=== PATIENT | male | born 1945 | race Caucasian/White ===

== ENCOUNTER 2024-02-20 10:00 | Inpatient (IN) | payer MEDICARE, OTHER, SELFPAY ==
[2024-02-19] VITALS (22 sets, daily range): BP systolic 95–128; BP diastolic 52–96; BMI 29.2; BMI 28.2
--- NOTE | 2024-02-19 14:14 | ED.GENMED ---
History of Present Illness
General
Chief Complaint: Dizziness
Time Seen by Provider: 02/19/24 13:59
Travel History
Have you had any contact with someone who has COVID-19?: No
Do you have any symptoms of coronavirus? Fever > 100 degrees, chills, cough, shortness of breath, sore throat, loss of taste or smell, muscle aches, or headache?: No
History of Present Illness
History of Present Illness:
78-year-old male with history of hypertension and hyperlipidemia presents to the emergency department for evaluation of chills and dizziness ongoing for the past 7 days. He notes that within the past few weeks his blood pressure medications were
increased due to uncontrolled hypertension, over the past week his blood pressures have been low. Yesterday his noted that his heart rate was quite elevated. He denies any chest pain or palpitations at this time. He does report increased
lightheadedness with ambulation and feels overall weak. No fevers or night sweats
Review of Systems
Review of Systems
Allergies reviewed?: Yes
All Other Systems: ROS reviewed and negative except as documented in HPI and ROS
Phy Exam
Physical Exam
Physical Exam:
GEN: Well appearing, NAD, WDWN
Eyes: PERRLA, EOMs intact, no scleral icterus
HENT: NCAT, oral mucosa moist, no JVD, no cervical adenopathy.
Lungs: CTAB, no wheezes, rales, rhonchi, normal chest wall excursion
Cardiac: Tachycardic and irregular, subtle systolic murmur
Abdomen: S, NT, ND, NABS, no masses or hepatosplenomegaly
Neuro: AO x 3
MSK: No gross deformity or ecchymosis. No edema. No digital clubbing
Skin: No rashes, petechiae. Normal color, no pallor or jaundice.
Psych: Calm, cooperative, proper hygiene
Course
Orders/Labs/Results
Orders:
Orders
02/19/24 12:27
ECG [Electrocardiogram (*1)] Urgent
Reason for Study: Vertigo / Dizzy
EKG- Treatment ONCE
02/19/24 14:13
CR Chest - 2 Views Urgent
Comment:
Reason For Exam: SOB
02/19/24 14:16
Complete Blood Count/With Diff Urgent
Comprehensive Metabolic Panel Urgent
NT-proBNP Urgent
Troponin I Urgent
02/19/24 15:48
Heparin 4,000 units IV NOW STA
Nursing to Place Non Medication Order As Directed
Physician Order: PTT 6 hours after initial start of Heparin infusion
Above order entered?: Yes
02/19/24 15:54
PTT Urgent
Comment: Obtain baseline before beginning heparin infusion if not already collected
02/19/24 16:00
Diltiazem 125 mg/125 ml Nss [Cardizem] 125 mg in 125 ml IV PER PROTOCOL
Initial dose in mg/hr, then titrate:: 5
Titrate to keep:: Heart rate 80-100 bpm
Titrate by mg/hr:: 5 mg/hr
Frequency of titrations (minutes):: 15
Maximum dose in mg/hr:: 15
Heparin 84573 Units/250 ml 25,000 units in 250 ml IV PER PROTOCOL
Weight to be used for heparin protocol in kilograms (kg):: 97.6
Protocol:: Cardiac Tx/Acute Coronary
PTT Goal Range to be used:: PTT 73 to 111 seconds
Order type:: Initial
INITIAL Infusion Dose (UNITS/KG/hr) & then follow protocol:: 12 units/kg/hr
Infusion Dose in UNITS/hr & then follow protocol (UNITS/hr):: 1,000
INFUSION RATE in mL/hr & then follow protocol (mL/hr):: 10
PTT less than or equal to 64 seconds:: Increase rate by 200 units/hr (+ 2 mL/hr)
PTT 64.1 to 72.9 seconds:: Increase rate by 100 units/hr (+ 1 mL/hr)
PTT 73 to 111 seconds:: Target Range. No change in rate.
PTT 111.1 to 130.9 seconds:: Decrease rate by 100 units/hr (- 1 mL/hr)
PTT 131 to 199.9 seconds:: HOLD for 1 hr. Then decrease rate by 200 units/hr (- 2 mL/hr)
PTT greater than or equal to 200 seconds:: HOLD for 2 hrs & Notify Provider. Then decrease by 200 units/hr (-
2 mL/hr)
Lab follow-up:: Each change, PTT q6h until 2 consecutive are therapeutic. Then PTT
daily.
02/19/24 17:10
Admit/Transfer Patient As Directed
Co-Sign Provider:
Level of Care: Observation services
Assign to:: IVU
Physician / Group: bimal
Diagnosis: new onset afib
Code Status As Directed
Resuscitation Status: Full Code
02/19/24 23:00
PTT Urgent
Abnormal Lab Results
02/19/24
14:16
RBC 4.16 L 10^6/uL
(4.70-6.10)
Hgb 12.2 L g/dL
(13.0-18.0)
Hct 37.0 L %
(39.0-52.0)
RDW 15.7 H %
(11.5-14.5)
Glucose 104 H mg/dl
(70-99)
02/19/24 14:16
02/19/24 14:16
Vital Signs
Initial and Last Documented VS:
Initial Vital Signs
Temp Pulse Resp BP Pulse Ox
97.9 F 102 20 127/66 96
02/19/24 12:20 02/19/24 12:20 02/19/24 12:20 02/19/24 12:20 02/19/24 12:20
Last Documented Vital Signs
Temp Pulse Resp BP Pulse Ox
97.9 F 89 15 106/65 94
02/19/24 12:20 02/19/24 18:15 02/19/24 18:15 02/19/24 18:15 02/19/24 18:15
MDM/Problems Addressed
MDM/Problems Addressed:
Patient centimeter new-onset rapid atrial fibrillation. Although it certainly may have started yesterday evidenced by the rapid heart rates we cannot definitively confirm as he has no palpitations at this time. I feel he is too high risk to
discharge home given his low normal blood pressures as any additional beta-blockers or calcium channel blockers may be detrimental. Started him on a Cardizem drip for rate control as well as IV heparin, will admit to the hospitalist service
Comment
Comment:
EKG independently interpreted by me shows a rapid atrial fibrillation at a rate of 117 with a left bundle branch block, no ST changes concerning for ischemia
Chest x-ray independently interpreted by me shows no acute cardiopulmonary abnormality
*Critical Care Note
Total Time (30-74mins, 75-104mins- exclusive of procedures): Not Applicable
ED Attending Note
-
Portions of this chart may have been created with voice recognition software.� Occasional wrong word or��sound alike� substitutions may have occurred due to the inherent limitations of voice recognition software.
Discharge Plan
Departure
Patient Disposition: Admit
Date of Disposition: 02/19/24
Time of Disposition: 16:45
Admit to: IMU
Presentation/result/management discussed w/ accepting MD/DO: Hospitalist
Discharge Problem:
Atrial fibrillation with RVR
Interventions
Interventions:
*Risk Screen - Suicide Last Done: 02/19/24 14:08
*General Assessment Last Done: 02/19/24 14:08
*Neglect/Abuse Screening Last Done: 02/19/24 14:08
ED- Fall Risk Assessment Last Done: 02/19/24 14:08
*ED COVID-19 Vaccine History Last Done: 02/19/24 12:20
ED- Neurological Assessment Last Done: 02/19/24 14:08
ED- Cardiac Assessment Last Done: 02/19/24 14:18
ED Swallowing Screen Last Done: 02/19/24 14:08
[2024-02-19 14:28] LABS: % Basophils 0.7 % (0-2); % Eosinophils 3.9 % (0-6); % Immature Granulocytes 0.1 % (0-0.5); % Lymphocytes 24.6 % (20.5-51.1); % Neutrophils 63.7 % (42.2-75.2); Absolute Basophils 0.1 10^3/uL (0-0.2); Absolute Eosinophils 0.3 10^3/uL (0-0.7); Absolute Lymphocytes 1.7 10^3/uL (1.2-3.4); Absolute Monocytes 0.5 10^3/uL (0.1-0.6); Absolute Neutrophils 4.4 10^3/uL (1.4-6.5); Hemoglobin 12.2 g/dL (13.0-18.0); Mean Corpuscular Hgb 29.3 pg (27.0-31.0); Mean Corpuscular Volume 88.9 fL (80.0-94.0); Mean Platelet Volume 9.6 fL (7.4-10.4); Nucleated Red Blood Cells % 0 % (-); Platelet Count 181 10^3/uL (130-400); Red Blood Cell Count 4.16 10^6/uL (4.70-6.10); Red Cell Dist. Width 15.7 % (11.5-14.5); White Blood Cell Count 6.9 10^3/uL (4.8-10.8)
[2024-02-19 14:44] LABS: ALT (SGPT) 16 U/L (0-50); AST (SGOT) 20 U/L (17-59); Alkaline Phosphatase 64 U/L (38-126); Blood Urea Nitrogen 17 mg/dl (9-20); Carbon Dioxide 30 mmol/L (22-30); Chloride 101 mmol/L (98-107); Estimated Creatinine Clearance 97 ml/min; Glucose 104 mg/dl (70-99); Potassium 3.8 mmol/L (3.5-5.1); Sodium 141 mmol/L (135-145); Total Bilirubin 0.4 mg/dl (0.2-1.3); Total Protein 6.6 g/dl (6.3-8.2); eGFR > 60.00
[2024-02-19 14:53] LABS: NT-proBNP 3610 pg/ml; Troponin I < 0.012 ng/ml
[2024-02-19 16:26] LABS: APTT 26.1 Sec (23.4-35.0)
[2024-02-19] MEDS: HEPARIN 4000 UNITS IV (16:50)
[2024-02-19] MEDS: CARDIZEM 125 IV (16:51)
[2024-02-19] MEDS: HEPARIN 25000 UNITS/250 ML IV (16:51)
--- NOTE | 2024-02-19 17:14 | HPS.HSE ---
Family Physician
-
Family Physician: Mily Fowler
Chief Complaint
-
dizziness
History of Present Illness
78-year-old male with past medical history of aortic stenosis, PVCs, left bundle branch block, hypertension, diabetes, hyperlipidemia, macular degeneration, presenting with lightheadedness with getting up over the past few days. Patient tracks his
blood pressure and heart rate and noticed that over the past few days his blood pressure was as low as 90s and yesterday his heart rate was variable and sometimes elevated. He had spoken to his motor setter Dr. Ceja yesterday who had decreased
amlodipine from 10 mg to 5 mg and hydrochlorothiazide from 50 to 25 mg. Patient also started valsartan a month ago.
Patient denies any chest pain, shortness of breath or lower extreme edema. His weight has been relatively stable. He denies any history of atrial fibrillation, cardiac stents or heart failure.
Patient had radiation for prostate cancer with some incidental radiation to the colon with very slight occasional blood in the stool after bowel movement at times.
He denies smoking or alcohol use.
Medical History
Past Medical History
Past Medical History: Reports Other ( aortic stenosis, PVCs, left bundle branch block, hypertension, diabetes, hyperlipidemia, macular degeneration,)
Past Surgical History: Reports Orthopedic and Tonsilectomy
Social History
Tobacco: Non-smoker
Alcohol: None
Drug: None
Family History
Family History: Not pertinent
Allergies / Home Medications
Allergies reflects when Allergies were last updated in [facility].
Home Medications with original date entered in [facility]
Allergy/Medication List:
Allergies
Allergy/AdvReac Type Severity Reaction Status Date / Time
No Known Allergies Allergy Unverified 02/19/24 12:22
Review of Systems
-
History Source: Patient
A 12 point ROS was completed and negative except as noted: Yes
Constitutional: Reports No Symptoms
EENT: Reports No Symptoms
Respiratory: Reports See HPI
Cardiac: Reports See HPI
Abdomen/GI: Reports No Symptoms
: Reports No Symptoms
Musculoskeletal: Reports No Symptoms
Skin: Reports No Symptoms
Neurological: Reports No Symptoms
Endocrine: Reports No Symptoms
Hematologic/Lymphatic: Reports No Symptoms
Psych: Reports No Symptoms
Physical Exam
Vital Signs
Vital Signs
Temp Pulse Resp BP Pulse Ox
97.9 F 133 23 120/80 94
02/19/24 12:20 02/19/24 17:01 02/19/24 17:01 02/19/24 17:01 02/19/24 17:01
Physical Exam
General: Well Developed, Well Nourished and No Apparent Distress
HEENT: NormoCephalic, Moist mucous membranes and Atraumatic
Respiratory: Clear
Cardiac: S1/S2 and Irregular Rhythm; No Murmur or Rub
GI: Soft, Non Tender, Non Distended and Normal Bowel Sounds; No Organomegaly
Rectal: Deferred by Provider
Musculoskeletal: No Clubbing, No Cyanosis and No Edema
Skin: No Rash
Neuro: Nonfocal/grossly intact
Laboratory Results
-
02/19/24 14:16
02/19/24 14:16
Laboratory Results
APTT 26.1 Sec (23.4-35.0) 02/19/24 15:54
Total Bilirubin 0.4 mg/dl (0.2-1.3) 02/19/24 14:16
AST 20 U/L (17-59) 02/19/24 14:16
ALT 16 U/L (0-50) 02/19/24 14:16
Alkaline Phosphatase 64 U/L (38-126) 02/19/24 14:16
Troponin I < 0.012 ng/ml 02/19/24 14:16
Data Reviewed
-
Lab Data: Labs Reviewed by me
Old Records: Reviewed
Impression/Plan
-
IMPRESSION:
PLAN:
# New onset atrial fibrillation with RVR
-EKG shows atrial fibrillation with RVR with rate of 117, left under branch block which is old as per records
-Chest x-ray unremarkable
-Check TSH
-Check echo
-Cardizem drip
-Heparin drip, and hold aspirin
-N.p.o. past midnight in case cardioversion recommended
-Cardiology consulted
History of PVCs
History of left bundle branch block
Mild aortic stenosis
Essential hypertension
-Continue chlorthalidone, amlodipine, valsartan, Coreg
Type 2 diabetes
-Continue metformin
Hyperlipidemia
-Continue statin
Prostate cancer status post radiation
-Continue oxybutynin, Gemtesa, tamsulosin
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
-Continue mesalamine
Macular degeneration
Full code
DVT prophylaxis�heparin drip
NPO past midnight
--- NOTE | 2024-02-19 18:22 | PHANOTE ---
02/19/2024, med rec tech, pt. states to be taking Mesalamine 1000 mg suppository HS; could not confirm with pharmacy fill data or [facility] records; pt. fills his meds. through the [facility] in [place]; used [facility] records from 01/04/2024 to confirm the rest of
pt.'s meds.
[2024-02-19] MEDS: FLOMAX 0.400000000000000022 MG PO (21:28)
[2024-02-19] MEDS: DITROPAN 5 MG PO (21:28)
[2024-02-19] MEDS: OCUVITE SOFTGEL 1 CAP PO (21:28)
[2024-02-19] MEDS: LIPITOR 20 MG PO (21:28)
[2024-02-19] MEDS: MELATONIN 6 MG PO (21:28)
[2024-02-19] MEDS: COREG 12.5 MG PO (21:28)
[2024-02-19] MEDS: GLUCOPHAGE 500 MG PO (21:28)
[2024-02-19 23:17] LABS: APTT 50.9 Sec (23.4-35.0)
--- NOTE | 2024-02-19 23:21 | PTCARENOTE ---
received patient from the ED at approx 1999. AAOx3. ambulated from the stretcher to the chair independently; steady on his feet. denies any lightheadedness/dizziness. denies any symptoms related to afib. 'fatigued recently.' HR Afib with a BBB. on
admission, HR 90s-120s. bp stable. currently, HR 70s. cardizem gtt titrated to 5 ml/hr. heparin gtt infusing per protocol. reviewed plan of care with patient and . staying over night. verbalized understanding. oriented to room. NPO at
midnight. answered all questions.
--- NOTE | 2024-02-19 23:34 | PTCARENOTE ---
patient expressed concern of level of care as 'observation' and insurance/medicare. case management consult placed. will pass on.
[2024-02-19 23:50] LABS: TSH Reflex To Free T4 2.94 uIU/ml (0.47-4.68)
[2024-02-20] VITALS (15 sets, daily range): BP systolic 80–125; BP diastolic 49–109; PULSE 96–132; BMI 28.2
--- NOTE | 2024-02-20 00:29 | PTCARENOTE ---
HR continues to be Afib on tele. lower rates with pauses noted in the 50s. patient was sleeping. cardizem gtt stopped. 2L NC applied. bp 111/63. HR currently 60s.
[2024-02-20 05:47] LABS: % Basophils 0.7 % (0-2); % Immature Granulocytes 0.3 % (0-0.5); % Monocytes 6.7 % (1.7-9.3); % Neutrophils 61.3 % (42.2-75.2); Absolute Basophils 0.1 10^3/uL (0-0.2); Absolute Eosinophils 0.3 10^3/uL (0-0.7); Absolute Lymphocytes 1.9 10^3/uL (1.2-3.4); Absolute Monocytes 0.5 10^3/uL (0.1-0.6); Absolute Neutrophils 4.3 10^3/uL (1.4-6.5); Hematocrit 33.3 % (39.0-52.0); Hemoglobin 11.5 g/dL (13.0-18.0); Mean Corp Hgb Conc. 34.5 g/dL (33.0-37.0); Mean Corpuscular Hgb 29.9 pg (27.0-31.0); Mean Corpuscular Volume 86.5 fL (80.0-94.0); Mean Platelet Volume 9.4 fL (7.4-10.4); Nucleated Red Blood Cells % 0 % (-); Platelet Count 167 10^3/uL (130-400); Red Blood Cell Count 3.85 10^6/uL (4.70-6.10); Red Cell Dist. Width 15.9 % (11.5-14.5)
[2024-02-20 06:00] LABS: APTT 67.1 Sec (23.4-35.0)
[2024-02-20 06:21] LABS: ALT (SGPT) 15 U/L (0-50); AST (SGOT) 20 U/L (17-59); Albumin 3.5 g/dl (3.5-5.0); Alkaline Phosphatase 68 U/L (38-126); Blood Urea Nitrogen 18 mg/dl (9-20); Calcium 9.5 mg/dl (8.4-10.2); Carbon Dioxide 28 mmol/L (22-30); Chloride 105 mmol/L (98-107); Estimated Creatinine Clearance 97 ml/min; Glucose 101 mg/dl (70-99); Potassium 3.3 mmol/L (3.5-5.1); Sodium 141 mmol/L (135-145); Total Bilirubin 0.6 mg/dl (0.2-1.3); eGFR > 60.00
--- NOTE | 2024-02-20 08:30 | PTCARENOTE ---
Pt received from hourly shift RN. AAOx3, resting in bed. Afib on air sampling and monitoring. HRs 80-130s. Remains on Cardizem gtt at 5mL/hr. Heparin gtt infusing per protocol. NPO for possible TRACEE/DCCV today. Pt without complaint at this time. Assessment
documented.
--- NOTE | 2024-02-20 08:36 | CON.CAR ---
Addendum entered and electronically signed by Vj Velazquez DO 02/20/24 11:13:
I saw and examined the patient.
The Metal Bending Machine Operator's note was reviewed and I agree with the note.
Comment:
Plan:
Reviewed AFib with pt and at bedside.
Dizziness may be multifactorial including orthostasis. Check orthostatic vitals.
Increase Coreg for better rate control and hold outpt norvasc, chlorthalidone, and valsartan for now
Wean off IV Cardizem
Cont IV Heparin with eventual transition to oral anticoagulation. Stop ASA.
Given his hx of distant SDH, hematuria and GI bleeding in the past, continue to monitor for bleeding and continue a rate control strategy for now and consider TRACEE/cv inpt vs outpt.
Check echo
Their son is a neurologist from [employer].
Original Note:
Consultation
Consultation Request
Date/Time Consultation Performed: 02/20/24
Requesting Provider: Dr. Asencio
Performing Provider: Martha Rincon PA-C for Dr. Velazquez
Reason for Consultation: afib
Medical History
-
Chief Complaint: dizziness
History of Present Illness:
Patient is a 78-year-old male with past medical history of mild to moderate aortic stenosis, chronic left bundle branch block, hypertension, hyperlipidemia, type 2 diabetes, history of metastatic prostate cancer status postradiation with radiation
cystitis as well as some incidental radiation to his colon. He reports issues with intermittent 'trace' blood in stool and urine. He reports the last episode was approximately 2 months ago. He states he has never required a transfusion or
hospitalization for this. He also has a history of falls with the most recent a year ago, however has a remote subdural as a result of a fall in the . He is followed by Dr. Ceja. He was noted at last office visit in 10/2023 to have elevated
blood pressure, and he had wanted to add irbesartan. He gets his medications through the [facility], and they [facility] not [facility]. He did this the end of November 2023. They started him on valsartan, as well as increased his
chlorthalidone from 25mg daily to 50 mg daily and Norvasc dose from 5mg daily to 10mg daily. Since this past Monday, patient has had episodes of dizziness, particularly worse with going from sitting to standing. He denies palpitations, chest pain,
shortness of breath. He had called Dr. Ceja and cholthalidone and norvasc doses were decreased back to 25mg daily and 5mg daily respectively however patient had not started those changes yet when he presented to the ER for evaluation last evening.
He was noted to be in atrial fibrillation with rapid ventricular response. This is a new diagnosis for patient. Cardiology consulted for evaluation. Denies LE edema, weight gain.
PMH:
chronic LBBB
HTN
HLD
DM2
Mild to mod by echo 2021
History of PVCs
History of metastatic prostate cancer s/p radiation
Incidental radiation to colon with intermittent 'trace' blood in stool
Radiation cystitis
History of falls
History of remote SDH as result of fall in
BPH
Macular degeneration
Past Medical History
Past Medical History: Other (in HPI)
Social History
Tobacco: Non-Smoker
Alcohol: None
Living: With Family
Employment: Retired
Family History
Family History: Other (history of valve replacement in mother)
Allergies / Home Medications
Allergy/AdvReac Type Severity Reaction Status Date / Time
No Known Allergies Allergy Unverified 02/19/24 12:22
�Medication �Instructions �Recorded �Confirmed �Type
acetaminophen 500 mg capsule 1,000 mg PO DAILYPRN PRN mild pain 02/19/24 02/19/24 History
amlodipine 10 mg tablet 10 mg PO DAILY 02/19/24 02/19/24 History
aspirin 81 mg tablet,delayed 81 mg PO DAILY 02/19/24 02/19/24 History
release
atorvastatin 40 mg tablet 20 mg PO HS 02/19/24 02/19/24 History
calcium citrate 2 tab PO BID 02/19/24 02/19/24 History
carvedilol 25 mg tablet 12.5 mg PO BID 02/19/24 02/19/24 History
cetirizine 10 mg tablet 10 mg PO NOON 02/19/24 02/19/24 History
chlorthalidone 50 mg tablet 50 mg PO DAILY 02/19/24 02/19/24 History
ferrous sulfate 325 mg (65 mg 325 mg PO QPM 02/19/24 02/19/24 History
iron) tablet (iron)
melatonin 3 mg tablet 6 mg PO HS 02/19/24 02/19/24 History
mesalamine 1,000 mg rectal 1 g IN HS 02/19/24 History
suppository
metformin 500 mg tablet 500 mg PO BID 02/19/24 02/19/24 History
oxybutynin chloride 5 mg tablet 5 mg PO TID 02/19/24 02/19/24 History
potassium chloride 20 mEq 60 meq PO BID 02/19/24 02/19/24 History
tablet,extended
release(part/cryst) (Klor-Con M)
tamsulosin 0.4 mg capsule 0.4 mg PO HS 02/19/24 02/19/24 History
therapeutic multivitamin 1 tab PO DAILY 02/19/24 02/19/24 History
valsartan 320 mg tablet 320 mg PO DAILY 02/19/24 02/19/24 History
vibegron 75 mg tablet (Gemtesa) 75 mg PO DAILY 02/19/24 02/19/24 History
vitamins A,C,T-zzsd-wizahe 2,148 1 tab PO BID 02/19/24 02/19/24 History
mcg-113 mg-45 mg-17.4 mg tablet
(PreserVision AREDS)
Review of Systems
-
History Source: Patient and Family
All other systems: Negative unless noted
Physical Exam
Vital Signs
Temp Pulse Resp BP Pulse Ox
97.4 F 82 16 100/70 94
02/20/24 07:43 02/20/24 07:43 02/20/24 07:43 02/20/24 05:37 02/20/24 07:43
Lab Results
02/20/24 05:37
02/20/24 05:37
Troponin I < 0.012 ng/ml 02/19/24 14:16
[id number] Pept 3610 pg/ml 02/19/24 14:16
Physical Exam
General: No Apparent Distress, Comfortable and Other (sitting in chair)
HEENT: Normocephalic, Anicteric and Moist Mucous Membranes
Respiratory: Clear and Non Labored Respirations
Cardiac: S1/S2, Irregular Rhythm and Murmur
GI: Soft, Non Tender, Non Distended and Normal Bowel Sounds
Musculoskeletal: No Clubbing, No Cyanosis and No Edema
Skin: Warm and Dry
Neuro: AO x 3
Impression / Plan
-
Primary Silk Screen Painter: Dr. Ceja
Assessment:
Presentation with dizziness
Atrial fibrillation with RVR
Hypokalemia
chronic LBBB
HTN
HLD
DM2
Mild to mod by echo 2021
History of PVCs
History of metastatic prostate cancer s/p radiation
Incidental radiation to colon with intermittent 'trace' blood in stool
Radiation cystitis
History of falls
History of remote SDH as result of fall in
BPH
Macular degeneration
History of B/L knee surgery
ECHO 2021: EF 60%, grade 2 diastolic dysfunction, mild biatrial enlargement, mild LVH, mild with peak/mean gradients of 29/19 mmHg, mild AI, mild increase in RVSP with mild TR
Plan:
-Patient presents to the emergency room with complaints of dizziness over the last 3 days. He is noted to be in atrial fibrillation with rapid ventricular response. Of note he has multiple recent changes to his antihypertensive medications as an
outpatient over the last 1-2months
-Complex case given history of falls and intermittent bleeding of GI/ tract related to prior radiation for prostate cancer
-[id number] score of 4 for age, HTN, DM.
-Hemoglobin 11.5 on 02/19. stop OP asa. continue IV heparin for now. follow hgb. plan to transition to eliquis in AM. CM to assess cost to patient. denies current hematuria or hematochezia.
-currently rate controlled in afib on IV cardizem at 5. dose was decreased overnight to due pauses which all appear to be 2.5 seconds or less upon review of telemetry. will need to follow for tachy neo on tele. he has history of neo in SR in
past.
-would attempt to rate control and trial on OAC to ensure able to tolerate without significant bleeding recurrence given history of GI/ bleed and history of falls. will increase OP coreg to 25mg BID. hold OP norvasc, chlorthalidone, and valsartan
for now
-consider for CV as OP if able to tolerate OAC
-check echo, last from 2021 as above
-check TSH
-check ortho VS
-CXR with clear lungs, does not examine volume overloaded
-replete K
-d/w nursing
-d/w patient and at bedside
Data Reviewed
-
EKG: Tracing Personally Visualized and interpreted
Radiology: Report Reviewed by me
Medical Tests (Nuc Med, Echo etc): Report Reviewed by me
Labs: Labs Reviewed by me
Old Records: Reviewed
[2024-02-20] MEDS: COREG PO (08:43)
[2024-02-20 08:55] LABS: Glucose - Point of Care 105 mg/dl (70-99)
[2024-02-20] MEDS: DITROPAN 5 MG PO ×3 (08:57→22:47)
[2024-02-20] MEDS: OCUVITE SOFTGEL 1 CAP PO ×2 (08:57→19:57)
[2024-02-20] MEDS: THERAGRAN 1 TABLET PO (08:57)
[2024-02-20] MEDS: DETROL LA 4 MG PO (08:58)
[2024-02-20] MEDS: CARDIZEM 125 IV (09:01)
[2024-02-20] MEDS: GLUCOPHAGE PO (10:09)
[2024-02-20] MEDS: COREG 25 MG PO ×2 (10:10→21:03)
[2024-02-20] MEDS: KCL 160 MEQ IV (10:38)
--- NOTE | 2024-02-20 11:31 | CM ---
shashank coto for pt with his pharm- [facility]. his first month copay is $548 (of which $545 is his deductible) the next months his copay is $3.60. 30 day free coupon placed in pts red [place] folder. it is in stock.
--- NOTE | 2024-02-20 12:08 | W.PN.HOSP.TC ---
Today's Communication/Plan
-
Monitor vital signs
see plan
Hold amlodipine, chlorthalidone, valsartan
Increase Coreg 25 mg twice daily
Echo
Replete potassium
Assessment / Plan
Assessment / Plan
General: Well Developed, Well Nourished and No Apparent Distress
HEENT: NormoCephalic, Moist mucous membranes and Atraumatic
Respiratory: Clear
Cardiac: S1/S2 and Irregular Rhythm; No Murmur or Rub
GI: Soft, Non Tender, Non Distended and Normal Bowel Sounds; No Organomegaly
Rectal: Deferred by Provider
Musculoskeletal: No Clubbing, No Cyanosis and No Edema
Skin: No Rash
Neuro: Nonfocal/grossly intact
New onset atrial fibrillation with RVR
-EKG shows atrial fibrillation with RVR with rate of 117, left under branch block which is old as per records
-Chest x-ray unremarkable
-Check TSH wnl
-Check echo
Wean Cardizem drip, Coreg increased
Continue with heparin drip,Stop aspirin
No plans for cardioversion today. Continue to monitor
-Cardiology follow
Elevated BNP noted
Does not appear to be in volume overload, chest x-ray without fluid overload
Monitor
Hypokalemia
Replete
History of PVCs
History of left bundle branch block
Mild aortic stenosis
Essential hypertension
-Holding chlorthalidone, amlodipine, valsartan
Coreg increased to 25 twice daily
Type 2 diabetes
-Hold metformin
Continue with Accu-Cheks, sliding scale
Hyperlipidemia
-Continue statin
Prostate cancer status post radiation
-Continue oxybutynin, Gemtesa, tamsulosin
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
-Continue mesalamine
Macular degeneration
Full code
DVT prophylaxis�heparin drip
Discussed with patient and spouse at bedside
Anticipated Discharge: 24 - 48 hours
Subjective/Interval History
-
Date of Service: February 20, 2024
Denies chest pain
Objective Data
-
Labs:
Laboratory Results
02/20/24 02/20/24
05:37 12:10
WBC 7.0
Hgb 11.5 L
Hct 33.3 L
Plt Count 167
APTT 67.1 H Pending
Sodium 141
Potassium 3.3 L
Chloride 105
Carbon Dioxide 28
BUN 18
Creatinine 0.7
Glucose 101 H
Calcium 9.5
Total Bilirubin 0.6
AST 20
ALT 15
Alkaline Phosphatase 68
Vital Signs:
Vital Signs
Temp Pulse Resp BP Pulse Ox
97.3 F 109 16 90/65 98
02/20/24 11:37 02/20/24 11:37 02/20/24 11:37 02/20/24 10:12 02/20/24 11:37
I&O
02/19/24 02/20/24 02/21/24
06:59 06:59 06:59
Intake Total 450 / 450
Balance 450 / 450
[2024-02-20 12:36] LABS: APTT 69.3 Sec (23.4-35.0)
--- NOTE | 2024-02-20 13:00 | PTCARENOTE ---
Cardizem gtt discontinued. PO Coreg increased to 25mg BID. Remains on Heparin gtt at this time. Plan to hold off on cardioversion and medically manage HR at this time due to pt hx of SDH, hematuria & GIB. Will observe pt on anticoagulation and see
if tolerating before moving forward with cardioversion. TTE later today.
[2024-02-20] MEDS: HEPARIN 25000 UNITS/250 ML IV (13:25)
[2024-02-20 13:30] LABS: Glucose - Point of Care 146 mg/dl (70-99)
[2024-02-20] MEDS: ZYRTEC 10 MG PO (13:30)
[2024-02-20] MEDS: NOVOLOG FLEXPEN-LOW RESISTANCE SC ×2 (13:31→17:25)
[2024-02-20] MEDS: FEOSOL 325 MG PO (17:13)
[2024-02-20 17:22] LABS: Glucose - Point of Care 112 mg/dl (70-99)
[2024-02-20] MEDS: LOPRESSOR 5 MG IV (18:40)
[2024-02-20 20:55] LABS: APTT 80.1 Sec (23.4-35.0)
[2024-02-20 22:07] LABS: Glucose - Point of Care 131 mg/dl (70-99)
[2024-02-20] MEDS: MELATONIN 6 MG PO (22:47)
[2024-02-20] MEDS: LIPITOR 20 MG PO (22:47)
[2024-02-20] MEDS: FLOMAX 0.400000000000000022 MG PO (22:47)
--- NOTE | 2024-02-20 23:54 | PTCARENOTE ---
Heparin gtt infusing at 1400units/hr. Tele remains afib. Offers no c/o at this time. Ambulating independently around room; steady gait. Assessment completed as documented. Currently in bed; call emmanuel w/in reach.
[2024-02-21] VITALS (11 sets, daily range): BP systolic 81–125; BP diastolic 50–107; BMI 28.3
[2024-02-21 03:54] LABS: % Basophils 0.6 % (0-2); % Eosinophils 3.9 % (0-6); % Immature Granulocytes 0.2 % (0-0.5); % Lymphocytes 32.6 % (20.5-51.1); % Monocytes 6.1 % (1.7-9.3); % Neutrophils 56.6 % (42.2-75.2); Absolute Eosinophils 0.2 10^3/uL (0-0.7); Absolute Monocytes 0.4 10^3/uL (0.1-0.6); Absolute Neutrophils 3.5 10^3/uL (1.4-6.5); Hemoglobin 11.3 g/dL (13.0-18.0); Mean Corp Hgb Conc. 33.2 g/dL (33.0-37.0); Mean Corpuscular Hgb 29.3 pg (27.0-31.0); Mean Corpuscular Volume 88.1 fL (80.0-94.0); Mean Platelet Volume 9.6 fL (7.4-10.4); Nucleated Red Blood Cells % 0 % (-); Platelet Count 155 10^3/uL (130-400); Red Blood Cell Count 3.86 10^6/uL (4.70-6.10); Red Cell Dist. Width 15.8 % (11.5-14.5); White Blood Cell Count 6.2 10^3/uL (4.8-10.8)
[2024-02-21 04:09] LABS: Blood Urea Nitrogen 18 mg/dl (9-20); Calcium 9.7 mg/dl (8.4-10.2); Carbon Dioxide 28 mmol/L (22-30); Chloride 104 mmol/L (98-107); Estimated Creatinine Clearance 113 ml/min; Glucose 106 mg/dl (70-99); Potassium 3.2 mmol/L (3.5-5.1); Sodium 140 mmol/L (135-145); eGFR > 60.00
[2024-02-21 04:16] LABS: APTT 87.3 Sec (23.4-35.0)
[2024-02-21] MEDS: KCL 40 MEQ PO ×2 (05:05→13:37)
[2024-02-21] MEDS: HEPARIN 25000 UNITS/250 ML IV ×2 (05:58→22:46)
[2024-02-21 07:46] LABS: Glucose - Point of Care 101 mg/dl (70-99)
[2024-02-21] MEDS: LOPRESSOR 5 MG IV (07:51)
[2024-02-21] MEDS: NOVOLOG FLEXPEN-LOW RESISTANCE SC ×3 (07:51→16:53)
[2024-02-21] MEDS: OCUVITE SOFTGEL 1 CAP PO ×2 (07:51→20:39)
[2024-02-21] MEDS: DETROL LA 4 MG PO (07:51)
[2024-02-21] MEDS: COREG 25 MG PO ×2 (07:51→20:39)
[2024-02-21] MEDS: THERAGRAN 1 TABLET PO (07:52)
[2024-02-21] MEDS: DITROPAN 5 MG PO ×3 (07:52→22:46)
--- NOTE | 2024-02-21 08:30 | PTCARENOTE ---
Pt received from fast food shift lead RN. Diana, resting in bed. Remains in afib on living specialist 90s-130s. Heparin gtt infusing per protocol. Assessment documented. Pt without complaint at this time.
--- NOTE | 2024-02-21 10:23 | W.PN.CARDCBS ---
Addendum entered and electronically signed by Herb Dutton MD 02/21/24 15:51:
I saw and examined the patient.
The Master Brewer's note was reviewed and I agree with the note.
Comment: Briefly, 78-year-old man presenting with dizziness found to be in atrial fibrillation with rapid ventricular response
Transthoracic echocardiogram here was mildly reduced left ventricular ejection fraction
Home Coreg was uptitrated for better heart rate control however he remains rapid
Blood pressure has been marginal and therefore we will add amiodarone for further rate control
Although he has elevated bleeding risk, risk of cardioembolic stroke is also elevated based on [id number] and therefore we will start heparin drip and monitor for bleeding
Unfortunately his rates have been rapid and difficult to control in atrial fibrillation and with his newly identified cardiomyopathy would likely benefit from a rhythm control strategy
Tentative plan for TRACEE/direct-current cardioversion in the morning to restore sinus rhythm
Transition to Eliquis prior to discharge
If he tolerates oral anticoagulation may ultimately be a candidate for ablation +/- Watchman
Original Note:
Today's Communication / Plan
-
continue coreg with hold parameters
add amiodarone 200mg BID
continue IV heparin. no bleeding issues thus far
tentatively for TRACEE/CV in AM if remains in SR
tubigrips
replete K. check mag
Impression / Plan
-
Primary Aeroplane Pilot: Dr. Ceja
Assessment:
Presentation with dizziness
Atrial fibrillation with RVR
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
Hypokalemia
chronic LBBB
HTN
HLD
DM2
Mild to mod by echo 2021
History of PVCs
History of metastatic prostate cancer s/p radiation
Incidental radiation to colon with intermittent 'trace' blood in stool
Radiation cystitis
History of falls
History of remote SDH as result of fall in
BPH
Macular degeneration
History of B/L knee surgery
ECHO 2021: EF 60%, grade 2 diastolic dysfunction, mild biatrial enlargement, mild LVH, mild with peak/mean gradients of 29/19 mmHg, mild AI, mild increase in RVSP with mild TR
ECHO 02/20/24: EF 45 to 50%, mild concentric LVH, septal contraction abnormality, MAC, mild MR, dilated left atrium, mild with mild AR, peak/mean gradients 23/14 mmHg, MYLES 1.6 to 1.8 cm�, dilated right atrium, mild TR, PAP 40 to 45 mmHg
Plan:
-he remains in afib with elevated HRs overnight
-Complex case given history of falls and intermittent bleeding of GI/ tract related to prior radiation for prostate cancer
-he has not had bleeding on IV heparin over the last 48 hours. hgb stable at 11.3
-echo with new EF 45-50%. reviewed with patient and at bedside 02/20
-he is hypotensive overnight in afib. his coreg dose was increased to 25mg BID for attempted rate control
-discussed addition of amiodarone 200mg BID for rate control. of note, he has history of neo in SR in past.
-would consider for TRACEE/CV in AM as does not appear to be tolerating afib
-would plan to transition to eliquis in AM post CV
-TSH WNL
-OP norvasc, chlorthalidone, and valsartan presently on hold.
-ortho VS negative 02/19
-replete K. check mag. on supp KCl as OP
-proBNP 3610. with some LE edema today. tubigrips ordered. would consider resuming diuretic in next 24-48 hours - was on chlorthalidone 25mg daily ([facility] to [facility]mg daily however then with dizziness)
-reports some dizziness toward end of my discussion with him. states he is overwhelmed and has issues with anxiety. nursing moved patient back to bed from chair. BP was low at 81/50.
-trop negative x1. given new CM, would consider for OP ischemic evaluation
-d/w nursing
-d/w patient and at bedside
PREADMIT DATA:
-Patient presents to the emergency room with complaints of dizziness over the last 3 days. He is noted to be in atrial fibrillation with rapid ventricular response. Of note he has multiple recent changes to his antihypertensive medications as an
outpatient over the last 1-2months
Progress Note - Aeroplane Pilot
Subjective
Date of Service: February 21, 2024
no CP. reports dizziness toward end of my discussion with patient and .
Objective
Labs:
02/21/24 03:34
02/21/24 03:34
Labs
Hgb 11.3 g/dL (13.0-18.0) L 02/21/24 03:34
Hct 34.0 % (39.0-52.0) L 02/21/24 03:34
Plt Count 155 10^3/uL (130-400) 02/21/24 03:34
APTT 87.3 Sec (23.4-35.0) H 02/21/24 03:34
Sodium 140 mmol/L (135-145) 02/21/24 03:34
Potassium 3.2 mmol/L (3.5-5.1) L 02/21/24 03:34
BUN 18 mg/dl (9-20) 02/21/24 03:34
Creatinine 0.6 mg/dL (0.7-1.3) L 02/21/24 03:34
Glucose 106 mg/dl (70-99) H 02/21/24 03:34
Troponins
02/19/24
14:16
Troponin I < 0.012
Vital Signs and I&O:
Vital Signs
Temp Pulse Resp BP Pulse Ox
97.6 F 132 18 112/93 94
02/21/24 07:00 02/21/24 07:51 02/21/24 07:00 02/21/24 07:51 02/21/24 07:00
Vital Signs
Temp Pulse Resp BP Pulse Ox
97.6 F 132 18 112/93 94
02/21/24 07:00 02/21/24 07:51 02/21/24 07:00 02/21/24 07:51 02/21/24 07:00
Intake & Output
02/19/24 02/20/24 02/21/24 02/22/24
07:59 07:59 07:59 07:59
Intake Total 450 / 450 1200 / 1200
Balance 450 / 450 1200 / 1200
Physical Exam
Physical Exam
GEN: No distress, awake, alert, oriented x3. sitting in chair
HEENT: supple, anicteric, mmm, eomi
LUNGS: Few crackles B/L, no wheezes
CV: Irreg, S1/S2, 1/6 syst LSB
ABD: soft, BS+, NT/ND
EXT: No cyanosis, clubbing. 1+ edema of B/L LE
NEURO: Gross non-focal
SKIN: Warm, pink, dry. No rash
[2024-02-21] MEDS: PACERONE 200 MG PO ×2 (12:11→20:39)
[2024-02-21] MEDS: ZYRTEC 10 MG PO (12:12)
[2024-02-21 12:19] LABS: Glucose - Point of Care 125 mg/dl (70-99)
--- NOTE | 2024-02-21 12:50 | W.PN.HOSP.TC ---
Today's Communication/Plan
-
Monitor vital signs see plan
Continue heparin drip
Started on amiodarone
Continue with Coreg
Plan for cardioversion tomorrow if remains in A-fib
Replete potassium
Assessment / Plan
Assessment / Plan
General: Well Developed, Well Nourished and No Apparent Distress
HEENT: NormoCephalic, Moist mucous membranes and Atraumatic
Respiratory: Clear
Cardiac: S1/S2 and Irregular Rhythm; No Murmur or Rub
GI: Soft, Non Tender, Non Distended and Normal Bowel Sounds; No Organomegaly
Rectal: Deferred by Provider
Musculoskeletal: No Clubbing, No Cyanosis and No Edema
Skin: No Rash
Neuro: Nonfocal/grossly intact
New onset atrial fibrillation with RVR
-EKG shows atrial fibrillation with RVR with rate of 117, left under branch block which is old as per records
-Chest x-ray unremarkable
- TSH wnl
Echo 02/19 with EF 45 to 50%, mild aortic stenosis with mild aortic regurgitation
Off Cardizem drip, Coreg increased
Started on amiodarone
N.p.o. past midnight for possible cardioversion if remains in A-fib
Continue with heparin drip,Stop aspirin
-Cardiology following
New cardiomyopathy
Echo with EF 45 to 50%
Monitor
Elevated BNP noted
Does not appear to be in volume overload, chest x-ray without fluid overload
Monitor
Hypokalemia
Replete
History of PVCs
History of left bundle branch block
Mild aortic stenosis
Essential hypertension
-Holding chlorthalidone, amlodipine, valsartan
Coreg increased to 25 twice daily
Type 2 diabetes
-Hold metformin
Continue with Accu-Cheks, sliding scale
Hyperlipidemia
-Continue statin
Prostate cancer status post radiation
-Continue oxybutynin, Gemtesa, tamsulosin
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
-Continue mesalamine
Macular degeneration
Full code
DVT prophylaxis�heparin drip
Discussed with patient and spouse at bedside
I spent a total of 52 minutes with the patient or on the floor. More than 50% of this time involved counseling and coordination of care.
Anticipated Discharge: 24 - 48 hours
Subjective/Interval History
-
Date of Service: February 21, 2024
Remains in A-fib, denies chest pain
Objective Data
-
Labs:
Laboratory Results
02/21/24
03:34
WBC 6.2
Hgb 11.3 L
Hct 34.0 L
Plt Count 155
APTT 87.3 H
Sodium 140
Potassium 3.2 L
Chloride 104
Carbon Dioxide 28
BUN 18
Creatinine 0.6 L
Glucose 106 H
Calcium 9.7
Vital Signs:
Vital Signs
Temp Pulse Resp BP Pulse Ox
98.4 F 104 18 113/68 96
02/21/24 12:10 02/21/24 12:11 02/21/24 12:10 02/21/24 12:11 02/21/24 12:10
I&O
02/20/24 02/21/24 02/22/24
06:59 06:59 06:59
Intake Total 450 / 450 1200 / 1200
Balance 450 / 450 1200 / 1200
[2024-02-21] MEDS: FEOSOL 325 MG PO (16:52)
[2024-02-21 16:53] LABS: Glucose - Point of Care 121 mg/dl (70-99)
[2024-02-21 21:34] LABS: Glucose - Point of Care 116 mg/dl (70-99)
--- NOTE | 2024-02-21 21:47 | PTCARENOTE ---
Heparin gtt infusing at 1400 units/hr. Pt aware of NPO status after midnight. Offers no c/o at this time. Tele remains afib. Currently in bed; call emmanuel w/in reach.
[2024-02-21] MEDS: FLOMAX 0.400000000000000022 MG PO (22:46)
[2024-02-21] MEDS: MELATONIN 6 MG PO (22:46)
[2024-02-21] MEDS: LIPITOR 20 MG PO (22:46)
[2024-02-22] VITALS (7 sets, daily range): BP systolic 101–129; BP diastolic 60–91; BMI 28.4
[2024-02-22 03:55] LABS: % Basophils 0.6 % (0-2); % Eosinophils 3.6 % (0-6); % Immature Granulocytes 0.3 % (0-0.5); % Lymphocytes 25.2 % (20.5-51.1); % Monocytes 6.7 % (1.7-9.3); % Neutrophils 63.6 % (42.2-75.2); Absolute Eosinophils 0.3 10^3/uL (0-0.7); Absolute Lymphocytes 1.8 10^3/uL (1.2-3.4); Absolute Monocytes 0.5 10^3/uL (0.1-0.6); Absolute Neutrophils 4.5 10^3/uL (1.4-6.5); Hematocrit 34.7 % (39.0-52.0); Hemoglobin 11.3 g/dL (13.0-18.0); Mean Corp Hgb Conc. 32.6 g/dL (33.0-37.0); Mean Platelet Volume 10.3 fL (7.4-10.4); Nucleated Red Blood Cells % 0 % (-); Platelet Count 174 10^3/uL (130-400)
[2024-02-22 04:12] LABS: Blood Urea Nitrogen 18 mg/dl (9-20); Calcium 9.4 mg/dl (8.4-10.2); Carbon Dioxide 26 mmol/L (22-30); Chloride 109 mmol/L (98-107); Estimated Creatinine Clearance 97 ml/min; Glucose 104 mg/dl (70-99); Potassium 3.7 mmol/L (3.5-5.1); Sodium 138 mmol/L (135-145); eGFR > 60.00
[2024-02-22 06:49] LABS: APTT 105.8 Sec (23.4-35.0)
[2024-02-22] MEDS: PACERONE 200 MG PO ×2 (07:36→20:06)
[2024-02-22] MEDS: FLUSH (NSS) 2 FLUSH IV (07:36)
--- NOTE | 2024-02-22 09:22 | ITS.CL.CARDI ---
Acid Filler - Cardioversion
Cardioversion
Procedure Report:
Date of Procedure:
Procedure: Cardioversion
Indication: Symptomatic atrial fibrillation
Performing Physician: Jorge Alberto Thomas MD
Technique: The patient was brought to the holding area. Signed informed consent was obtained. A time out was called and performed. The patient was anesthetized by the anesthesia service. Anticoagulation status was reviewed and appropriate. R2 pads
were placed anteriorly and posteriorly. After TRACEE revealed no LV thrombus, a 200 J synchronized biphasic shock restored normal sinus rhythm without significant bradycardia. There were no complications.
Conclusion: Uncomplicated cardioversion from atrial fibrillation to sinus rhythm.
Recommendation: Routine post cardioversion care. Continue supervisor intermediates anticoagulation.
[2024-02-22] MEDS: DETROL LA 4 MG PO (10:23)
[2024-02-22] MEDS: DITROPAN 5 MG PO ×3 (10:24→22:24)
[2024-02-22] MEDS: THERAGRAN 1 TABLET PO (10:24)
[2024-02-22] MEDS: OCUVITE SOFTGEL 1 CAP PO ×2 (10:24→20:08)
[2024-02-22 10:35] LABS: Glucose - Point of Care 118 mg/dl (70-99)
[2024-02-22] MEDS: NOVOLOG FLEXPEN-LOW RESISTANCE SC ×2 (10:35→18:46)
--- NOTE | 2024-02-22 10:36 | PTCARENOTE ---
Received the patient from the blood bank laboratory technologist post CV. The patient is aaox3, vss, 95% on RA. Sinus neo is noted on the monitor with a HR of 57. He has no complaints of pain. His is at his bedside. His call benitez is within reach.
--- NOTE | 2024-02-22 11:52 | W.PN.CARDCBS ---
Addendum entered and electronically signed by Jorge Alberto Thomas MD 02/22/24 13:45:
I saw and examined the patient.
The Instrument Maker's note was reviewed and I agree with the note.
Comment:
GEN: No distress, awake, Ox3
HEENT: supple, anicteric, mmm
LUNGS: scatt rhonchi
CV: Reg, S1/S2, 1/6 syst LSB, no gallop
ABD: soft, BS+, NT/ND
EXT: No edema
NEURO: Gross non-focal
SKIN: No rash
Plan:
Back in sinus rhythm status post TRACEE cardioversion. He does have some sinus bradycardia. Decrease Coreg to 12.5 mg twice daily. Continue amiodarone 200 mg p.o. twice daily x 2 weeks then decrease to 200 mg daily.
Restart chlorthalidone 25 mg daily. Hold Norvasc and valsartan.
Check basic metabolic panel in 1 week.
Okay for discharge today. Will start Eliquis 5mg po bid today.
Original Note:
Today's Communication / Plan
-
s/p successful TRACEE/CV
due to neo in SR, decrease coreg back to 12.5mg BID
continue amiodarone 200mg BID for 2 weeks then decrease to 200mg daily
continue to hold OP norvasc, valsartan. resume chlorthalidone 25mg daily and OP KCl 40 mEq BID
BMP in 1 week
transition IV heparin to eliquis this afternoon
OP cardiac follow up with Dr. Ceja arranged
Impression / Plan
-
Primary Parachute Line Tier: Dr. Ceja
Assessment:
Presentation with dizziness
Atrial fibrillation with RVR s/p successful TRACEE/CV 02/22/24
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
Hypokalemia
chronic LBBB
HTN
HLD
DM2
Mild to mod by echo 2021
History of PVCs
History of metastatic prostate cancer s/p radiation
Incidental radiation to colon with intermittent 'trace' blood in stool
Radiation cystitis
History of falls
History of remote SDH as result of fall in
BPH
Macular degeneration
History of B/L knee surgery
ECHO 2021: EF 60%, grade 2 diastolic dysfunction, mild biatrial enlargement, mild LVH, mild with peak/mean gradients of 29/19 mmHg, mild AI, mild increase in RVSP with mild TR
ECHO 02/20/24: EF 45 to 50%, mild concentric LVH, septal contraction abnormality, MAC, mild MR, dilated left atrium, mild with mild AR, peak/mean gradients 23/14 mmHg, MYLES 1.6 to 1.8 cm�, dilated right atrium, mild TR, PAP 40 to 45 mmHg
Plan:
-he underwent successful TRACEE/CV earlier this morning
-remains in SR/SB at this time with HRs mostly in 50s. he has history of sinus neo
-with addition of amiodarone, will decrease coreg dose back to 12.5mg BID
-will continue amiodarone 200mg BID for 2 weeks then decrease to 200mg daily
-currently remains on IV heparin, will plan to transition to eliquis this afternoon. he has not reported issues with bleeding and hgb has remained stable at 11.3 (he has history of intermittent bleeding of GI/ tract related to prior radiation for
prostate cancer)
-will continue to hold OP constance montalvo - can reassess starting as OP.
-he reports some mild cough post CV and proBNP this admission was 3610. will resume OP chlorthalidone 25mg daily and KCl 40 mEq BID (preadmission dose)
-BMP in 1 week
-echo with new EF 45-50%.
-trop negative x1. given new CM, would consider for OP ischemic evaluation, although suspected tachy related CM
-OP follow up with Dr. Ceja arranged
-ok for DC to home later today vs in AM depending on how patient feeling
-d/w at bedside
-d/w nursing
PREADMIT DATA:
-Patient presents to the emergency room with complaints of dizziness over the last 3 days. He is noted to be in atrial fibrillation with rapid ventricular response. Of note he has multiple recent changes to his antihypertensive medications as an
outpatient over the last 1-2months
Progress Note - Parachute Line Tier
Subjective
Date of Service: February 22, 2024
s/p successful TRACEE/CV
Objective
Labs:
02/22/24 03:07
02/22/24 03:07
Labs
Hgb 11.3 g/dL (13.0-18.0) L 02/22/24 03:07
Hct 34.7 % (39.0-52.0) L 02/22/24 03:07
Plt Count 174 10^3/uL (130-400) 02/22/24 03:07
APTT 105.8 Sec (23.4-35.0) H 02/22/24 06:26
Sodium 138 mmol/L (135-145) 02/22/24 03:07
Potassium 3.7 mmol/L (3.5-5.1) 02/22/24 03:07
BUN 18 mg/dl (9-20) 02/22/24 03:07
Creatinine 0.7 mg/dL (0.7-1.3) 02/22/24 03:07
Glucose 104 mg/dl (70-99) H 02/22/24 03:07
Troponins
02/19/24
14:16
Troponin I < 0.012
Vital Signs and I&O:
Vital Signs
Temp Pulse Resp BP Pulse Ox
97.4 F 59 20 128/70 96
02/22/24 11:07 02/22/24 11:10 02/22/24 11:07 02/22/24 11:10 02/22/24 11:07
Vital Signs
Temp Pulse Resp BP Pulse Ox
97.4 F 59 20 128/70 96
02/22/24 11:07 02/22/24 11:10 02/22/24 11:07 02/22/24 11:10 02/22/24 11:07
Intake & Output
02/20/24 02/21/24 02/22/24 02/23/24
07:59 07:59 07:59 07:59
Intake Total 450 / 450 1200 / 1200 1128 / 1128
Balance 450 / 450 1200 / 1200 1128 / 1128
--- NOTE | 2024-02-22 12:52 | W.PN.HOSP.TC ---
Today's Communication/Plan
-
Monitor vital signs and see plan
Successful cardioversion today
Decrease Coreg
Continue to hold valsartan, amlodipine
Assessment / Plan
Assessment / Plan
General: Well Developed, Well Nourished and No Apparent Distress
HEENT: NormoCephalic, Moist mucous membranes and Atraumatic
Respiratory: Clear
Cardiac: S1/S2 and regular Rhythm; No Murmur or Rub
GI: Soft, Non Tender, Non Distended and Normal Bowel Sounds; No Organomegaly
Rectal: Deferred by Provider
Musculoskeletal: No Clubbing, No Cyanosis and No Edema
Skin: No Rash
Neuro: Nonfocal/grossly intact
New onset atrial fibrillation with RVR
-EKG shows atrial fibrillation with RVR with rate of 117, left under branch block which is old as per records
-Chest x-ray unremarkable
- TSH wnl
Echo 02/19 with EF 45 to 50%, mild aortic stenosis with mild aortic regurgitation
Status post successful TRACEE cardioversion 02/21. Now with bradycardia so Coreg decreased back to 12.5
continue amiodarone 200mg BID for 2 weeks then decrease to 200mg daily
Continue with heparin drip,Stop aspirin; transition heparin to Eliquis this afternoon
-Cardiology following
New cardiomyopathy
Echo with EF 45 to 50%
Monitor
Elevated BNP noted
Does not appear to be in volume overload, chest x-ray without fluid overload
Monitor
Hypokalemia
Replete
History of PVCs
History of left bundle branch block
Mild aortic stenosis
Essential hypertension
-Holding amlodipine, valsartan on discharge per cards
Continue Coreg
resume chlorthalidone on dc
Type 2 diabetes
-Hold metformin
Continue with Accu-Cheks, sliding scale
Hyperlipidemia
-Continue statin
Prostate cancer status post radiation
-Continue oxybutynin, Gemtesa, tamsulosin
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
-Continue mesalamine
Macular degeneration
Full code
DVT prophylaxis�heparin drip
Discussed with patient and spouse at bedside
Anticipated Discharge: Within 24 hours
Subjective/Interval History
-
Date of Service: February 22, 2024
denies pain
Objective Data
-
Labs:
Laboratory Results
02/22/24 02/22/24
03:07 06:26
WBC 7.0
Hgb 11.3 L
Hct 34.7 L
Plt Count 174
APTT 105.8 H
Sodium 138
Potassium 3.7
Chloride 109 H
Carbon Dioxide 26
BUN 18
Creatinine 0.7
Glucose 104 H
Calcium 9.4
Vital Signs:
Vital Signs
Temp Pulse Resp BP Pulse Ox
97.4 F 59 20 128/70 96
02/22/24 11:07 02/22/24 11:10 02/22/24 11:07 02/22/24 11:10 02/22/24 11:07
I&O
02/21/24 02/22/24 02/23/24
06:59 06:59 06:59
Intake Total 1200 / 1200 1128 / 1128
Balance 1200 / 1200 1128 / 1128
[2024-02-22] MEDS: Hygroton 25 MG PO (13:00)
[2024-02-22] MEDS: ZYRTEC 10 MG PO (13:00)
[2024-02-22] MEDS: COREG PO (13:40)
[2024-02-22 13:44] LABS: Glucose - Point of Care 164 mg/dl (70-99)
[2024-02-22] MEDS: NOVOLOG FLEXPEN-LOW RESISTANCE 1 UNITS SC (14:49)
[2024-02-22] MEDS: ELIQUIS 5 MG PO (15:56)
[2024-02-22] MEDS: FLUSH (NSS) 1 FLUSH IV (15:57)
[2024-02-22] MEDS: FEOSOL 325 MG PO (17:11)
--- NOTE | 2024-02-22 17:16 | PTCARENOTE ---
The patient had a 10 beat run of VT on the monitor. The patient was sleeping at the time. I woke him to give him his iron and he stated that he 'didn't feel a thing.' I notified Dr. Thomas.
[2024-02-22 18:41] LABS: Glucose - Point of Care 90 mg/dl (70-99)
[2024-02-22] MEDS: COREG 12.5 MG PO (20:08)
[2024-02-22] MEDS: KLOR-CON 40 MEQ PO (20:08)
--- NOTE | 2024-02-22 20:46 | PTCARENOTE ---
AOx3. Assessment completed as documented. Tele- SR. HR 60s. Offers no complaints at this time. Currently OOB in chair; call emmanuel w/in reach.
[2024-02-22 21:05] LABS: Glucose - Point of Care 148 mg/dl (70-99)
[2024-02-22] MEDS: MELATONIN 6 MG PO (22:24)
[2024-02-22] MEDS: LIPITOR 20 MG PO (22:24)
[2024-02-22] MEDS: FLOMAX 0.400000000000000022 MG PO (22:24)
[2024-02-23 04:45] VITALS: BMI 28.6
[2024-02-23 04:47] VITALS: BP 121/61
[2024-02-23 05:04] LABS: % Basophils 0.7 % (0-2); % Immature Granulocytes 0.3 % (0-0.5); % Lymphocytes 21.6 % (20.5-51.1); % Monocytes 6.8 % (1.7-9.3); % Neutrophils 66.6 % (42.2-75.2); Absolute Eosinophils 0.2 10^3/uL (0-0.7); Absolute Lymphocytes 1.2 10^3/uL (1.2-3.4); Absolute Monocytes 0.4 10^3/uL (0.1-0.6); Absolute Neutrophils 3.8 10^3/uL (1.4-6.5); Hematocrit 32.6 % (39.0-52.0); Hemoglobin 10.7 g/dL (13.0-18.0); Mean Corp Hgb Conc. 32.8 g/dL (33.0-37.0); Mean Corpuscular Hgb 29.2 pg (27.0-31.0); Mean Corpuscular Volume 89.1 fL (80.0-94.0); Mean Platelet Volume 9.4 fL (7.4-10.4); Nucleated Red Blood Cells % 0 % (-); Platelet Count 143 10^3/uL (130-400); Red Blood Cell Count 3.66 10^6/uL (4.70-6.10); White Blood Cell Count 5.7 10^3/uL (4.8-10.8)
[2024-02-23 05:42] LABS: Blood Urea Nitrogen 16 mg/dl (9-20); Calcium 9.6 mg/dl (8.4-10.2); Carbon Dioxide 23 mmol/L (22-30); Chloride 107 mmol/L (98-107); Estimated Creatinine Clearance 97 ml/min; Glucose 96 mg/dl (70-99); Potassium 3.7 mmol/L (3.5-5.1); Sodium 137 mmol/L (135-145); eGFR > 60.00
--- NOTE | 2024-02-23 07:39 | W.PN.CARDCBS ---
Addendum entered and electronically signed by Jorge Alberto Thomas MD 02/23/24 11:53:
I saw and examined the patient.
The Route Driver Salesperson's note was reviewed and I agree with the note.
Comment:
GEN: No distress, awake, Ox3
HEENT: supple, anicteric, mmm
LUNGS: scatt rhonchi
CV: Reg, S1/S2, 1/6 syst LSB, no gallop
ABD: soft, BS+, NT/ND
EXT: No edema
NEURO: Gross non-focal
SKIN: No rash
Plan:
Remains in sinus rhythm. Heart rates overall stable in the 50-60 range.
Continue Coreg 12.5 mg p.o. twice daily. Continue amiodarone 200 mg twice daily for 2 weeks then 200 mg daily.
Continue to hold Norvasc and valsartan. Reassess as outpatient.
Restart chlorthalidone 25 mg daily. Check basic metabolic panel in 1 week. Case management to assess because of SGLT 2 inhibitor
Okay to follow-up with Dr. Ceja.
Original Note:
Today's Communication / Plan
-
IV lasix x1 today. resume OP chlorthalidone 25mg daily in AM
amiodarone 200mg BID for 2 weeks then 200mg daily
coreg 12.5mg BID
no norvasc or valsartan at present, can resume as OP
eliquis 5mg BID
BMP in 1 week
CM to assess cost to patient of SGLT2 inhibitor
OP follow up with Dr. Ceja arranged
ok for DC to home later today
Impression / Plan
-
Primary Metal Fitter: Dr. Ceja
Assessment:
Presentation with dizziness
Atrial fibrillation with RVR s/p successful TRACEE/CV 02/22/24
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
Acute HFpEF
Hypokalemia
chronic LBBB
HTN
HLD
DM2
Mild to mod by echo 2021
History of PVCs
History of metastatic prostate cancer s/p radiation
Incidental radiation to colon with intermittent 'trace' blood in stool
Radiation cystitis
History of falls
History of remote SDH as result of fall in
BPH
Macular degeneration
History of B/L knee surgery
ECHO 2021: EF 60%, grade 2 diastolic dysfunction, mild biatrial enlargement, mild LVH, mild with peak/mean gradients of 29/19 mmHg, mild AI, mild increase in RVSP with mild TR
ECHO 02/20/24: EF 45 to 50%, mild concentric LVH, septal contraction abnormality, MAC, mild MR, dilated left atrium, mild with mild AR, peak/mean gradients 23/14 mmHg, MYLES 1.6 to 1.8 cm�, dilated right atrium, mild TR, PAP 40 to 45 mmHg
Plan:
-remains in sinus neo s/p TRACEE/CV 02/21
-he complains of sensitivity of skin on his back from CV. will order silvadene cream
-he reports some improvement in cough compared to yesterday, however still there and with some LE edema. will give dose of IV lasix 20mg x1 today and resume OP chlorthalidone in AM
-K 3.7. with 2 brief episodes of WCT on tele overnight (longest 9 beats), will give additional KCl with lasix dose. mag 02/20 was 2.0
-continue amiodarone 200mg BID for 2 weeks then decrease to 200mg daily
-continue coreg 12.5mg BID
-continue eliquis 5mg BID. he has not had bleeding issues since initiation of OAC. (he has history of intermittent bleeding of GI/ tract related to prior radiation for prostate cancer)
-will continue to hold OP norvascmaritavan - can reassess starting as OP.
-BMP in 1 week as OP
-echo with new EF 45-50%.
-consider addition of jardiance/farxiga as also with diabetes. on metformin as OP. will have CM assess cost to patient
-trop negative x1. given new CM, would consider for OP ischemic evaluation, although suspected tachy related CM
-OP follow up with Dr. Ceja arranged
-ok for DC to home later today
-d/w nursing
PREADMIT DATA:
-Patient presents to the emergency room with complaints of dizziness over the last 3 days. He is noted to be in atrial fibrillation with rapid ventricular response. Of note he has multiple recent changes to his antihypertensive medications as an
outpatient over the last 1-2months
Progress Note - Metal Fitter
Subjective
Date of Service: February 23, 2024
reports remains with some cough and LE edema however improved compared to yesterday
Objective
Labs:
02/23/24 04:54
02/23/24 04:54
Labs
Hgb 10.7 g/dL (13.0-18.0) L 02/23/24 04:54
Hct 32.6 % (39.0-52.0) L 02/23/24 04:54
Plt Count 143 10^3/uL (130-400) 02/23/24 04:54
APTT 105.8 Sec (23.4-35.0) H 02/22/24 06:26
Sodium 137 mmol/L (135-145) 02/23/24 04:54
Potassium 3.7 mmol/L (3.5-5.1) 02/23/24 04:54
BUN 16 mg/dl (9-20) 02/23/24 04:54
Creatinine 0.7 mg/dL (0.7-1.3) 02/23/24 04:54
Glucose 96 mg/dl (70-99) 02/23/24 04:54
Vital Signs and I&O:
Vital Signs
Temp Pulse Resp BP Pulse Ox
98 F 56 16 121/61 94
02/23/24 04:45 02/23/24 07:00 02/23/24 04:45 02/23/24 04:47 02/23/24 04:45
Vital Signs
Temp Pulse Resp BP Pulse Ox
98 F 56 16 121/61 94
02/23/24 04:45 02/23/24 07:00 02/23/24 04:45 02/23/24 04:47 02/23/24 04:45
Intake & Output
02/20/24 02/21/24 02/22/24 02/23/24
07:59 07:59 07:59 07:59
Intake Total 450 / 450 1200 / 1200 1128 / 1128
Output Total 240 / 240
Balance 450 / 450 1200 / 1200 1128 / 1128 -240 / -240
Physical Exam
Physical Exam
GEN: No distress, awake, alert, oriented x3. sitting in chair
HEENT: supple, anicteric, mmm, eomi
LUNGS: Crackles B/L bases, no wheezes
CV: Reg and neo, S1/S2, 1/6 syst LSB
ABD: soft, BS+, NT/ND
EXT: No cyanosis, clubbing. 1+ edema of B/L LE
NEURO: Gross non-focal
SKIN: Warm, pink, dry. No rash. mild white from CV pad on back
[2024-02-23] MEDS: NOVOLOG FLEXPEN-LOW RESISTANCE SC ×2 (07:41→11:19)
[2024-02-23 07:44] LABS: Glucose - Point of Care 110 mg/dl (70-99)
[2024-02-23 08:04] VITALS: BP 115/58
[2024-02-23] MEDS: DITROPAN 5 MG PO (08:09)
[2024-02-23] MEDS: COREG 12.5 MG PO (08:10)
[2024-02-23] MEDS: DETROL LA 4 MG PO (08:10)
[2024-02-23] MEDS: KLOR-CON 40 MEQ PO (08:11)
[2024-02-23] MEDS: ELIQUIS 5 MG PO (08:11)
[2024-02-23] MEDS: PACERONE 200 MG PO (08:12)
[2024-02-23] MEDS: THERAGRAN 1 TABLET PO (08:12)
[2024-02-23] MEDS: OCUVITE SOFTGEL 1 CAP PO (08:12)
[2024-02-23] MEDS: LASIX 20 MG IV (09:43)
[2024-02-23] MEDS: KLOR-CON 20 MEQ PO (09:43)
[2024-02-23 09:45] VITALS: BP 100/57
[2024-02-23] MEDS: SILVADENE 1 APPLIC TOPICAL (09:47)
[2024-02-23 09:58] LABS: Glycohemoglobin (HgbA1c) 6.8 % (4.0-5.6)
--- NOTE | 2024-02-23 10:52 | PTCARENOTE ---
RN provided education to patient and patients on medications and plan of care, RN answered all questions. Pt is awaiting possible d/c later this shift
[2024-02-23 11:00] VITALS: BP 115/63
[2024-02-23 11:19] LABS: Glucose - Point of Care 125 mg/dl (70-99)
[2024-02-23] MEDS: ZYRTEC 10 MG PO (11:22)
--- NOTE | 2024-02-23 12:04 | CM ---
Priced Jardiance and Farxiga thru patient's insurance, [facility]: [phone].
Both Jardiance and Farxiga require prior authorization. Once authorized, either medication would be $11/mo.
Both medications have a quantity limit of 1x/day.
Relayed this information to [facility].
I can provide free 30 d or 14 d coupon for either medication if prescribed.
--- NOTE | 2024-02-23 12:05 | W.PN.HOSP.TC ---
Today's Communication/Plan
-
monitor vitals
see plan
Discharge today
cw amio
Time of discharge 38 minutes
Assessment / Plan
Assessment / Plan
General: Well Developed, Well Nourished and No Apparent Distress
HEENT: NormoCephalic, Moist mucous membranes and Atraumatic
Respiratory: Clear
Cardiac: S1/S2 and regular Rhythm; No Murmur or Rub
GI: Soft, Non Tender, Non Distended and Normal Bowel Sounds; No Organomegaly
Rectal: Deferred by Provider
Musculoskeletal: No Clubbing, No Cyanosis and No Edema
Skin: No Rash
Neuro: Nonfocal/grossly intact
New onset atrial fibrillation with RVR
-EKG shows atrial fibrillation with RVR with rate of 117, left under branch block which is old as per records
-Chest x-ray unremarkable
- TSH wnl
Echo 02/19 with EF 45 to 50%, mild aortic stenosis with mild aortic regurgitation
Status post successful TRACEE cardioversion 02/21. Now with bradycardia so Coreg decreased back to 12.5
continue amiodarone 200mg BID for 2 weeks then decrease to 200mg daily
Now on Eliquis
-Cardiology following
New cardiomyopathy
Echo with EF 45 to 50%
Monitor
Elevated BNP noted
Does not appear to be in volume overload, chest x-ray without fluid overload
Monitor
Hypokalemia
Replete
History of PVCs
History of left bundle branch block
Mild aortic stenosis
Essential hypertension
-Holding amlodipine, valsartan on discharge per cards
Continue Coreg
resume chlorthalidone on dc
Type 2 diabetes
Resume metformin on discharge
Continue with Accu-Cheks, sliding scale
Hyperlipidemia
-Continue statin
Prostate cancer status post radiation
-Continue oxybutynin, Gemtesa, tamsulosin
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
-Continue mesalamine
Macular degeneration
Full code
DVT prophylaxis�heparin drip
Discussed with patient and spouse at bedside
Anticipated Discharge: Today
Subjective/Interval History
-
Date of Service: February 23, 2024
Denies chest pain
Objective Data
-
Labs:
Laboratory Results
02/23/24
04:54
WBC 5.7
Hgb 10.7 L
Hct 32.6 L
Plt Count 143
Sodium 137
Potassium 3.7
Chloride 107
Carbon Dioxide 23
BUN 16
Creatinine 0.7
Glucose 96
Calcium 9.6
Vital Signs:
Vital Signs
Temp Pulse Resp BP Pulse Ox
97.9 F 59 20 100/57 94
02/23/24 10:58 02/23/24 09:45 02/23/24 10:58 02/23/24 09:45 02/23/24 10:58
I&O
02/22/24 02/23/24 02/24/24
06:59 06:59 06:59
Intake Total 1128 / 1128 720 / 720
Output Total 240 / 240
Balance 1128 / 1128 -240 / -240 720 / 720
--- NOTE | 2024-02-23 12:07 | CM ---
CM following for DC planning needs.
Met w/ patient at bedside. Offered VN, patient is agreeable to referral to [facility].
Referral sent, accepted.
Plan is for home w/ [facility].
--- NOTE | 2024-02-23 12:13 | W.DCSUMMARY ---
Discharge Summary
Discharge Data
Date of Admission: 02/20/24
Date of Discharge: 02/23/24
-
Pending Results: No
Hospital Course
78-year-old male with past medical history of type 2 diabetes mellitus, essential hypertension, aortic stenosis, left bundle branch block, hyperlipidemia, prostate cancer status post radiation, macular degeneration came to the hospital with new
onset atrial fibrillation with rapid ventricular rate. Patient was initially started on IV heparin which was later transitioned to p.o. Eliquis prior to discharge. For his atrial fibrillation he was seen by cardiology throughout hospitalization
and had an echocardiogram on 02/20/2024 which showed EF of 45 to 50% with mild aortic stenosis. It was thought that his new cardiomyopathy is likely secondary to arrhythmia. He was also started on amiodarone however he remained in A-fib so he was
cardioverted on 02/22/2024. He remained in normal sinus rhythm after cardioversion. He was instructed to continue amiodarone 200 mg twice daily for 2 weeks and then decrease it to 200 mg daily. Given his low blood pressure, his amlodipine and
valsartan was held on discharge. Once patient symptoms continue to improve, he was then discharged home with instructions to follow-up with all his physicians outpatient.
Discharge Plan
-
Patient Disposition: Home (Routine Discharge)
Discharge Diagnosis/Procedures: New onset atrial fibrillation with rapid ventricular rate status post cardioversion
Cardiomyopathy
Essential hypertension
Diet: Diabetic, Carb Controlled
Activity: As tolerated
Driving Restrictions: As prior to admission
Bathing Restrictions: None
Activity Restrictions/Additional Instructions:
continue amiodarone 200mg twice daily for 2 weeks then decrease to 200mg daily!
Referrals:
[facility] [Outside]
Avel Ceja MD [Active] - 03/07/24 2:00 pm (You have a cardiology follow up appointment at the [facility]. Please call with questions. )
Mily Fowler DO [Family Provider] - in less than 1 week
Prescriptions:
New
Eliquis 5 mg Tablet
5 mg PO BID Qty: 60 0RF
chlorthalidone 25 mg Tablet
25 mg PO DAILY Qty: 30 0RF
silver sulfadiazine 1 % Cream
1 applic topical DAILY Qty: 50 0RF
amiodarone [Pacerone] 200 mg Tablet
200 mg PO BID Qty: 60 0RF
Rx Instructions:
200 mg twice daily for 2 weeks and then 200 mg daily
Continued
metformin 500 mg Tablet
500 mg PO BID
tamsulosin 0.4 mg Capsule
0.4 mg PO HS
oxybutynin chloride 5 mg Tablet
5 mg PO TID
atorvastatin 40 mg Tablet
20 mg PO HS
carvedilol 25 mg Tablet
12.5 mg PO BID
cetirizine 10 mg Tablet
10 mg PO NOON
therapeutic multivitamin Tablet
1 tab PO DAILY
melatonin 3 mg Tablet
6 mg PO HS
ferrous sulfate [iron] 325 mg (65 mg iron) Tablet
325 mg PO QPM
acetaminophen 500 mg Capsule
1,000 mg PO DAILYPRN PRN (Reason: mild pain)
mesalamine 1,000 mg Suppository
1 g [place] HS
PreserVision AREDS 2,148 mcg-113 mg-45 mg-17.4mg Tablet
1 tab PO BID
Gemtesa 75 mg Tablet
75 mg PO DAILY
calcium citrate 315 mg tablet
2 tab PO BID
Changed
potassium chloride [Klor-Con M20] 20 mEq Tablet,Er Particles/Crystals
40 meq PO BID Qty: 0 0RF
Held
amlodipine 10 mg Tablet
10 mg PO DAILY
Hold Instructions: Hold until instructed to take by cardiology
Patient Comments:
02/19/2024, per pt., was recently changed to 5 mg daily but pt. has not started taking this dose yet.
valsartan 320 mg Tablet
320 mg PO DAILY
Hold Instructions: Until instructed to take by cardiology
Discontinued
chlorthalidone 50 mg Tablet
50 mg PO DAILY
Patient Comments:
02/19/2024, per pt., was recently changed to 25 mg daily but pt. has not started taking this dose yet.
aspirin 81 mg Tablet,Delayed Release (Dr/Ec)
81 mg PO DAILY
Discharge Orders:
Discharge Patient (As Directed); Ordered 02/23/24
Ordered By: Jc Asencio
Care Plan Goals
Care Plan Goals:
Problem: Readiness for enhanced knowledge related to diagnosis and treatment plan
Goal: Understand your diagnosis and treatment plan needs, including medications if applicable.
Instructions: Know your diagnosis, underlying causes and treatment plan options, including medications if applicable. Consult with your health care team to learn about your diagnosis and treatment plan, including medications if applicable.
Discharge Date and Time
Discharge Date/Time: 02/23/24 14:19
Print Language: DANISH
== END 2024-02-23 14:19 | disposition home or self-care (01) | DRG 308 ==
LOC: IVU 10:00
PROVIDERS: Internal Medicine Cardiovascular Disease; Physician Assistant; ADMITTING PHYSICIAN Hospitalist; ATTENDING PHYSICIAN Internal Medicine; EMERGENCY PHYSICIAN Emergency Medicine; FAMILY PHYSICIAN Family Medicine; OTHER PHYSICIAN Nuclear Medicine Nuclear Cardiology
PROC: B24BZZ4 Ultrasonography of Heart with Aorta, Transesophageal (ICD-10-PCS; 2024-02-22)
PROC: 5A2204Z Restoration of Cardiac Rhythm, Single (ICD-10-PCS; 2024-02-22)
DX: I48.91 Unspecified atrial fibrillation (principal); I50.31 Acute diastolic (congestive) heart failure; E87.6 Hypokalemia; I10 Essential (primary) hypertension; E11.9 Type 2 diabetes mellitus without complications; E78.5 Hyperlipidemia, unspecified; C61 Malignant neoplasm of prostate; I42.9 Cardiomyopathy, unspecified; I08.3 Combined rheumatic disorders of mitral, aortic and tricuspid valves; Z79.01 Long term (current) use of anticoagulants; Z79.82 Long term (current) use of aspirin
CPT/HCPCS: 71046; 80048; 80053; 82962; 83036; 83735; 83880; 84443; 84484; 85025; 85730; 92960; 93005; 93306; 93312; 93320; 93325; 96374; 99285

== ENCOUNTER → 2024-04-01 06:59 | Outpatient (REF) | payer MEDICARE, OTHER, SELFPAY | LOC: DHCBC/DCA 06:59 | PROVIDERS: ATTENDING PHYSICIAN Internal Medicine Cardiovascular Disease; FAMILY PHYSICIAN Family Medicine | DX: I48.0 Paroxysmal atrial fibrillation (principal) | CPT/HCPCS: 78452; 93017; A9500; J2785 ==

== ENCOUNTER 2024-04-24 17:41 | Emergency (ER) | payer MEDICARE, OTHER, SELFPAY ==
[2024-04-24 17:44] VITALS: BP 164/79
--- NOTE | 2024-04-24 18:15 | ED.GENMED ---
History of Present Illness
General
Chief Complaint: Heart Rate Problem
Source: patient
Exam Limitations: none
Time Seen by Provider: 04/24/24 18:01
Travel History
Have you had any contact with someone who has COVID-19?: No
Do you have any symptoms of coronavirus? Fever > 100 degrees, chills, cough, shortness of breath, sore throat, loss of taste or smell, muscle aches, or headache?: No
History of Present Illness
History of Present Illness:
This is a 78 year old male that comes in with c/o irregular heart rhythm. States that he thought he was in atrial fib according to his watch. States that he was here for 4-5 days recently for atrial fib and was Cardioverted. States that a couple of
days ago they added on 04/16/24 Amlodipine 5mg daily and on 03/27 they changed his Valsartan to 320mg daily. States that he just felt weak and a little lightheaded. Denies any fever, chills, chest pain, SOB, abd pain, nausea, vomiting, diarrhea,
headache, urinary burning.
Past History
Past History
ED Past Medical History: Arrthythmia (Atrial fib), Cancer (Prostate CA with radiation), HTN, Hypercholesterolemia, NIDDM, Psychiatric (Anxiety) and Other (Neuropathy, Numbness arms and legs, Sleep apnea uses CPAP, PNA, LBBB, Diverticulitis, IBS.
Macular degeneration, [place] fasciitis right foot)
ED Past Surgical History: Orthopedic (Benjamin knee replacements, Benjamin Bunionectomy. Right elbow for bursa rupture, ), Tonsilectomy and Other (Cataracts, Mohs surgery to Nose, )
Social History
Tobacco: Non-smoker
Alcohol: None
Personal:
Living: with family
Review of Systems
Review of Systems
All Other Systems: ROS reviewed and negative except as documented in HPI and ROS
Constitutional: Reports no symptoms; Denies fever or chills
EENT: Reports no symptoms
Respiratory: Reports no symptoms; Denies cough or trouble breathing
Cardiac: Reports other (Irregular Rhythm); Denies chest pain
ABD/GI: Reports no symptoms; Denies abdominal pain, nausea, vomiting or diarrhea
: Reports no symptoms; Denies dysuria, frequency or urgency
Musculoskeletal: Reports no symptoms
Skin: Reports no symptoms
Neurological: Reports weakness ([place] weak) and other (Lightheaded); Denies dizzy or headache
Psychiatric: Reports no symptoms
Phy Exam
General Physical Exam
General Presentation: no apparent distress
General age: appears stated age
General Skin: warm and dry
General Habitus: elderly
General Mental: alert
General Hydration: dry mucous membranes
ENT Exam
ENT Exam: TM's normal, pharynx normal and neck supple
Eye Exam
Eye Exam: EOMI
Cardiovascular Exam
Cardiovascular Exam: normal peripheral pulses, irregularly irregular and other (Murmur)
Pulmonary Exam
Pulmonary Exam: lungs clear, no respiratory distress, no rales, chest non tender, no crackles, no rhonchi, no wheezing and no cough
Gastrointestinal Exam
Gastrointestinal Exam: normal bowel sounds, non tender, soft, no organomegaly, no pulsatile mass and non distended
Musculoskeletal Exam
Musculoskeletal Exam: full ROM and edema (Lower legs nonpitting)
Skin Exam
Skin Exam: normal color, warm/dry, no rash and no petechia
Psychiatric Exam
Psychiatric Exam: normal mood/affect
Course
Orders/Labs/Results
Orders:
Orders
04/24/24 17:42
Electrocardiogram (*1) Urgent
Reason for Study: Chest Pain
EKG- Treatment ONCE
04/24/24 18:14
0.9% Sodium Chloride 500 ml [Nss] 500 ml IV BOLUS
04/24/24 18:23
Complete Blood Count/With Diff Urgent
Comprehensive Metabolic Panel Urgent
TSH Reflex To Free T4 Urgent
Troponin I Urgent
Abnormal Lab Results
04/24/24
18:23
RBC 3.85 L 10^6/uL
(4.70-6.10)
Hgb 11.4 L g/dL
(13.0-18.0)
Hct 33.3 L %
(39.0-52.0)
RDW 15.5 H %
(11.5-14.5)
Carbon Dioxide 33 H mmol/L
(22-30)
Glucose 122 H mg/dl
(70-99)
04/24/24 18:23
04/24/24 18:23
Vital Signs
Initial and Last Documented VS:
Initial Vital Signs
Temp Pulse Resp BP Pulse Ox
98.0 F 75 20 164/79 95
04/24/24 17:44 04/24/24 17:44 04/24/24 17:44 04/24/24 17:44 04/24/24 17:44
Last Documented Vital Signs
Temp Pulse Resp BP Pulse Ox
98.0 F 67 21 153/68 95
04/24/24 17:44 04/24/24 19:30 04/24/24 19:30 04/24/24 19:00 04/24/24 17:44
MDM/Problems Addressed
Differential Diagnosis Includes:
Dehydration. PAC's
MDM/Problems Addressed:
This is a 78 year old male that comes in with c/o thinking that he was in atrial fib. States that he had no chest pian but felt a little weak and lightheaded.
Will check labs, give IV fluids and have patient follow up with the [employer]. Explained that they may also need to tweak his medication again.
Back into see patient. Explained that his blood work is normal along with his Thyroid function. Patient heart rate is 67 at this time in a NRS. Patient to call the social media campaign manager tomorrow as they can look at everything form today and if they feels his
medication needs to be changed that will be up to them. Will discharge ptient home.
Chronic conditions affecting care: Arrhythmia (atrial fib)
Acute Exacerbation and/or Progression of Chronic Illness: Arrhythmia (atrial fib)
*Pulse Oximetry
Patient hypoxic: no
*EKG
Interpreted by ED Provider?: Yes
Heart Rate: 81
Rate: normal
Rhythm: PAC's and sinus arrhythmia
Handley: normal axis
QRS Pattern: left bundle branch block
Ischemia: no ischemia
*[employer] Equipment Research Engineer Interpretation
Rate: normal
Heart Rate: 84
Rhythm: sinus and PAC's
*Critical Care Note
Total Time (30-74mins, 75-104mins- exclusive of procedures): Not Applicable
ED Attending Note
-
Portions of this chart may have been created with voice recognition software.� Occasional wrong word or��sound alike� substitutions may have occurred due to the inherent limitations of voice recognition software.
Discharge Plan
Departure
Patient Disposition: Home (Routine Discharge)
Date of Disposition: 04/24/24
Time of Disposition: 20:14
Patient with high blood pressure during this ER visit?: Yes
Condition: Good
Covid-19: Not Applicable
Discharge Problem:
PAC (premature atrial contraction)
Instructions: Palpitations (DC), BLOOD PRESSURE
Prescriptions:
No Action
metformin 500 mg Tablet
500 mg PO BID
tamsulosin 0.4 mg Capsule
0.4 mg PO HS
amlodipine 10 mg Tablet
10 mg PO DAILY
Hold Instructions: Hold until instructed to take by cardiology
Patient Comments:
02/19/2024, per pt., was recently changed to 5 mg daily but pt. has not started taking this dose yet.
valsartan 320 mg Tablet
320 mg PO DAILY
Hold Instructions: Until instructed to take by cardiology
oxybutynin chloride 5 mg Tablet
5 mg PO TID
atorvastatin 40 mg Tablet
20 mg PO HS
carvedilol 25 mg Tablet
12.5 mg PO BID
cetirizine 10 mg Tablet
10 mg PO NOON
therapeutic multivitamin Tablet
1 tab PO DAILY
melatonin 3 mg Tablet
6 mg PO HS
ferrous sulfate [iron] 325 mg (65 mg iron) Tablet
325 mg PO QPM
acetaminophen 500 mg Capsule
1,000 mg PO DAILYPRN PRN (Reason: mild pain)
mesalamine 1,000 mg Suppository
1 g [place] HS
PreserVision AREDS 2,148 mcg-113 mg-45 mg-17.4mg Tablet
1 tab PO BID
Gemtesa 75 mg Tablet
75 mg PO DAILY
calcium citrate 315 mg tablet
2 tab PO BID
Eliquis 5 mg Tablet
5 mg PO BID Qty: 60 0RF
potassium chloride [Klor-Con M20] 20 mEq Tablet,Er Particles/Crystals
40 meq PO BID Qty: 0 0RF
chlorthalidone 25 mg Tablet
25 mg PO DAILY Qty: 30 0RF
silver sulfadiazine 1 % Cream
1 applic topical DAILY Qty: 50 0RF
amiodarone [Pacerone] 200 mg Tablet
200 mg PO BID Qty: 60 0RF
Rx Instructions:
200 mg twice daily for 2 weeks and then 200 mg daily
Referrals:
Jorge Alberto Thomas MD [Active] - Call in 1-3 days for appt
Mily Fowler DO [Family Provider] -
Activity Restrictions/Additional Instructions:
As discussed, your blood work is normal. Your thyroid function is normal. You are in a normal sinus rhythm with PAC's. Please call the social media campaign manager office as they may wish to change or increased your medication. Please increase your water intake to
8-8oz glasses daily. Try to stay away form Caffeine as this can cause Palpitations. IF YOU HAVE ANY OTHER CONCERNS PLEASE RETURN TO THE EMERGENCY ROOM.
Interventions
Interventions:
*Risk Screen - Suicide Last Done: 04/24/24 17:44
*General Assessment Last Done: 04/24/24 17:44
*Neglect/Abuse Screening Last Done: 04/24/24 17:44
ED- Cardiac Assessment Last Done: 04/24/24 18:46
ED- Pulmonary Assessment Last Done: 04/24/24 18:46
Discharge Date and Time
Print Language: ISRAELI
[2024-04-24 18:24] VITALS: BP 144/71
[2024-04-24] MEDS: NSS 500 IV (18:29)
[2024-04-24 18:34] LABS: % Eosinophils 3.4 % (0-6); % Immature Granulocytes 0.2 % (0-0.5); % Lymphocytes 21.1 % (20.5-51.1); % Monocytes 7.5 % (1.7-9.3); % Neutrophils 66.8 % (42.2-75.2); Absolute Basophils 0.1 10^3/uL (0-0.2); Absolute Eosinophils 0.2 10^3/uL (0-0.7); Absolute Lymphocytes 1.3 10^3/uL (1.2-3.4); Absolute Monocytes 0.5 10^3/uL (0.1-0.6); Absolute Neutrophils 4.1 10^3/uL (1.4-6.5); Hematocrit 33.3 % (39.0-52.0); Hemoglobin 11.4 g/dL (13.0-18.0); Mean Corp Hgb Conc. 34.2 g/dL (33.0-37.0); Mean Corpuscular Hgb 29.6 pg (27.0-31.0); Mean Corpuscular Volume 86.5 fL (80.0-94.0); Mean Platelet Volume 8.5 fL (7.4-10.4); Nucleated Red Blood Cells % 0 % (-); Platelet Count 137 10^3/uL (130-400); Red Blood Cell Count 3.85 10^6/uL (4.70-6.10); Red Cell Dist. Width 15.5 % (11.5-14.5); White Blood Cell Count 6.1 10^3/uL (4.8-10.8)
[2024-04-24 18:53] LABS: ALT (SGPT) 15 U/L (0-50); AST (SGOT) 25 U/L (17-59); Albumin 3.8 g/dl (3.5-5.0); Alkaline Phosphatase 65 U/L (38-126); Blood Urea Nitrogen 18 mg/dl (9-20); Calcium 9.6 mg/dl (8.4-10.2); Carbon Dioxide 33 mmol/L (22-30); Chloride 102 mmol/L (98-107); Glucose 122 mg/dl (70-99); Potassium 3.6 mmol/L (3.5-5.1); Sodium 142 mmol/L (135-145); Total Bilirubin 0.5 mg/dl (0.2-1.3); Total Protein 6.4 g/dl (6.3-8.2); eGFR > 60.00
[2024-04-24 18:58] LABS: Troponin I < 0.012 ng/ml
[2024-04-24 19:00] VITALS: BP 153/68
[2024-04-24 19:23] LABS: TSH Reflex To Free T4 1.49 uIU/ml (0.47-4.68)
[2024-04-24 20:15] VITALS: BP 148/74
== END 2024-04-24 20:42 | disposition home or self-care (01) ==
LOC: EMR 17:41
PROVIDERS: Clinical Nurse Specialist Family Health; EMERGENCY PHYSICIAN Emergency Medicine; FAMILY PHYSICIAN Family Medicine
DX: I49.1 Atrial premature depolarization (principal); I48.91 Unspecified atrial fibrillation; I10 Essential (primary) hypertension; E78.00 Pure hypercholesterolemia, unspecified; E11.36 Type 2 diabetes mellitus with diabetic cataract; G47.30 Sleep apnea, unspecified; K58.9 Irritable bowel syndrome, unspecified; Z79.899 Other long term (current) drug therapy; Z85.46 Personal history of malignant neoplasm of prostate; Z96.653 Presence of artificial knee joint, bilateral
CPT/HCPCS: 99283; 96360; 80053; 84443; 84484; 85025; 93005

== ENCOUNTER 2024-08-29 16:12 | Emergency (ER) | payer MEDICARE, OTHER, SELFPAY ==
[2024-08-29] VITALS (31 sets, daily range): BP systolic 110–152; BP diastolic 68–112; BMI 27.6
--- NOTE | 2024-08-29 16:23 | ED.GENMED ---
ED Provider Triage
<WHIT Mckeon - Last Filed: 08/29/24 16:29>
-
Patient seen by provider in Triage?: Seen in Triage
Attestation: A medical screening examination has been initiated by a qualified medical provider. Based on the assessment performed at this time, it has been determined that an emergent medical condition may exist and the patient has been informed
that further medical evaluation and possible additional diagnostic testing may be needed.
HPI: 78 yr old male hx of afib/LBBB presents to the ER for evaluation. Pt checked his pulse today and it was high and monitor told him he was in afib. He was seen at [facility] and had EKG. hx of afib. has not missed any doses of eliquis.
followed by William. He denies any chest pain/shortness of breath . pt felt lightheaded yesterday was unaware he was in afib. He normally can not tell. He uses his [employer] monitor.
GENERAL: Alert , in no apparent distress
EYE: No visual abnormalities.
NECK: Trachea midline
ENT: No visible abnormalities.
LUNGS: No acute respiratory distress
Heart: irregular rate tachycardic
NEUROLOGICAL: Alert and oriented
SKIN: Skin intact. No visible changes.
MUSCULOSKELETAL: Moving extremities normally
PSYCH: Normal and appropriate interaction.
This is a medical evaluation conducted in person to initiate diagnostic evaluation and provide initial therapeutics. Please see further documentation by the treating clinician.
History of Present Illness
<WHIT Mckeon - Last Filed: 08/29/24 16:29>
General
Chief Complaint: Heart Rate Problem
Time Seen by Provider: 08/29/24 17:11
<David Irizarry PA-C - Last Filed: 08/29/24 20:49>
General
Source: patient
History of Present Illness
History of Present Illness:
78-year-old male with past medical history of paroxysmal atrial fibrillation, hypertension, hyperlipidemia, ckf-nzurwmh-ewojdjwfs diabetes, previous prostate cancer presenting to the emergency department for evaluation at request of primary care
provider after patient was found to be in a rapid a-fib. Patient notes that the last 2 days when he was checking his vital signs at home noticed a rapid irregular heart rate but notes he is otherwise asymptomatic. He denies any chest pain,
shortness of breath, palpitations, diaphoresis, dyspnea on exertion orthopnea. Denies any fevers or infectious symptoms or recent illnesses. No other concerns at this time.
Past History
<WHIT Mckeon - Last Filed: 08/29/24 16:29>
Past History
ED Past Medical History: Arrthythmia (Atrial fib), Cancer (Prostate CA with radiation), HTN, Hypercholesterolemia, NIDDM, Psychiatric (Anxiety) and Other (Neuropathy, Numbness arms and legs, Sleep apnea uses CPAP, PNA, LBBB, Diverticulitis, IBS.
Macular degeneration, Planter fasciitis right foot)
ED Past Surgical History: Orthopedic (Benjamin knee replacements, Benjamin Bunionectomy. Right elbow for bursa rupture, ), Tonsilectomy and Other (Cataracts, Mohs surgery to Nose, )
Social History
Tobacco: Non-smoker
Alcohol: None
Personal:
Living: with family
<David Irizarry PA-C - Last Filed: 08/29/24 20:49>
Social History
Drug: None
Review of Systems
<David Irizarry PA-C - Last Filed: 08/29/24 20:49>
Review of Systems
All Other Systems: ROS reviewed and negative except as documented in HPI and ROS
Phy Exam
<David Irizarry PA-C - Last Filed: 08/29/24 20:49>
Physical Exam
Physical Exam:
GENERAL: Alert , in no apparent distress
EYE: clear conjunctiva
NECK: Supple
ENT: mmm.
CARDIAC: Irregularly irregular, tachycardic
LUNGS: Clear breath sounds bilaterally, no acute respiratory distress,
NEUROLOGICAL: Alert and oriented
SKIN: Warm and dry, skin intact.
MUSCULOSKELETAL: well perfused.
PSYCH: Normal and appropriate interaction.
Scores
<David Irizarry PA-C - Last Filed: 08/29/24 20:49>
Heart Failure Risk
Heart Failure Risk Score: Not Applicable
Heart Score for Chest Pain Patients
STEMI patient?: Not applicable
Withdrawal Assessment of Alcohol
Withdrawal Assessment Completed?: Not applicable
Course
<WHIT Mckeon - Last Filed: 08/29/24 16:29>
Orders/Labs/Results
Orders:
Orders
08/29/24 16:13
Electrocardiogram (*1) Urgent
Reason for Study: Tachycardia
EKG- Treatment ONCE
08/29/24 16:31
CMP [Comprehensive Metabolic Panel] Urgent
Complete Blood Count/With Diff Urgent
08/29/24 17:33
Propofol [Diprivan] 20 ml .ROUTE .STK-MED
08/29/24 18:48
EKG PRN [ECG as needed] As Directed
ECG as needed for:: Rhythm Change
Abnormal Lab Results
08/29/24
16:31
RBC 4.62 L 10^6/uL
(4.70-6.10)
RDW 15.4 H %
(11.5-14.5)
Glucose 103 H mg/dl
(70-99)
08/29/24 16:31
08/29/24 16:31
Vital Signs
Initial and Last Documented VS:
Initial Vital Signs
Temp Pulse Resp Pulse Ox
36.7 C 79 18 98
08/29/24 16:15 08/29/24 16:15 08/29/24 16:15 08/29/24 16:15
Last Documented Vital Signs
Temp Pulse Resp BP Pulse Ox
36.9 C 72 14 144/69 98
08/29/24 19:29 08/29/24 19:45 08/29/24 19:45 08/29/24 19:45 08/29/24 19:45
<David Irizarry PA-C - Last Filed: 08/29/24 20:49>
Orders/Labs/Results
Orders:
Orders
08/29/24 16:13
Electrocardiogram (*1) Urgent
Reason for Study: Tachycardia
EKG- Treatment ONCE
08/29/24 16:31
CMP [Comprehensive Metabolic Panel] Urgent
Complete Blood Count/With Diff Urgent
08/29/24 17:33
Propofol [Diprivan] 20 ml .ROUTE .STK-MED
08/29/24 18:48
EKG PRN [ECG as needed] As Directed
ECG as needed for:: Rhythm Change
Abnormal Lab Results
08/29/24
16:31
RBC 4.62 L 10^6/uL
(4.70-6.10)
RDW 15.4 H %
(11.5-14.5)
Glucose 103 H mg/dl
(70-99)
08/29/24 16:31
08/29/24 16:31
Vital Signs
Initial and Last Documented VS:
Initial Vital Signs
Temp Pulse Resp Pulse Ox
36.7 C 79 18 98
08/29/24 16:15 08/29/24 16:15 08/29/24 16:15 08/29/24 16:15
Last Documented Vital Signs
Temp Pulse Resp BP Pulse Ox
36.9 C 72 14 144/69 98
08/29/24 19:29 08/29/24 19:45 08/29/24 19:45 08/29/24 19:45 08/29/24 19:45
[employer] consulted with Physician
[employer] consulted with physician?: Yes
Name of Physician Consulted: Valeria
<Artemio Shaw MD - Last Filed: 08/29/24 23:12>
Orders/Labs/Results
Orders:
Orders
08/29/24 16:13
Electrocardiogram (*1) Urgent
Reason for Study: Tachycardia
EKG- Treatment ONCE
08/29/24 16:31
CMP [Comprehensive Metabolic Panel] Urgent
Complete Blood Count/With Diff Urgent
08/29/24 17:33
Propofol [Diprivan] 20 ml .ROUTE .STK-MED
08/29/24 18:48
EKG PRN [ECG as needed] As Directed
ECG as needed for:: Rhythm Change
Abnormal Lab Results
08/29/24
16:31
RBC 4.62 L 10^6/uL
(4.70-6.10)
RDW 15.4 H %
(11.5-14.5)
Glucose 103 H mg/dl
(70-99)
08/29/24 16:31
08/29/24 16:31
Vital Signs
Initial and Last Documented VS:
Initial Vital Signs
Temp Pulse Resp Pulse Ox
36.7 C 79 18 98
08/29/24 16:15 08/29/24 16:15 08/29/24 16:15 08/29/24 16:15
Last Documented Vital Signs
Temp Pulse Resp BP Pulse Ox
36.9 C 72 14 144/69 98
08/29/24 19:29 08/29/24 19:45 08/29/24 19:45 08/29/24 19:45 08/29/24 19:45
Procedures
<David Irizarry PA-C - Last Filed: 08/29/24 20:49>
Cardioversion
Indication:: Afib
Performed by:: Valeria/Juan C
Synchronized?: Yes
Energy Used: 200 joules
Number of attempts: 1
Successful?: Yes
ASA Risk Score: Class II
Any reaction or bad outcome to prior sedation/anesthesia?: No history of a reaction
Sedation level to be attained: moderate
Chart and allergies reviewed: Yes
Patient reassessed prior to sedation: Yes
Time out completed at (validating right patient & procedure): 18:43
History of difficult intubation: No
Airway free of obstruction: Yes
Patient has a gag reflex: Yes
Patient is able to open mouth: Yes
Patient has no dentures: Yes
Patient has no loose teeth: Yes
Medication administered by Provider during Moderate Sedation: IV Propofol (mg)
Total dose administered: 50
Time drug administered: 18:43
Start Time: 18:43
Stop Time: 18:59
<David Irizarry PA-C - Last Filed: 08/29/24 20:49>
MDM/Problems Addressed
Differential Diagnosis Includes:
afib, valvular dysfunction, electrolyte dysfunction
MDM/Problems Addressed:
78-year-old male with past medical history of paroxysmal atrial fibrillation presenting to the emergency department for evaluation after being found to be in a rapid A-fib at primary care's office. Patient is asymptomatic. Heart rate fluctuating
from anywhere between 100 bpm to up as high as 148 beats per minute. He is hemodynamically stable and in no acute distress. Had extensive conversation with patient about different treatment options including cardioversion as well as oral or IV
medications. After discussion patient feels comfortable with proceeding with cardioversion. He reports good compliance with his Eliquis and did take his Eliquis this morning. Patient has had cardioversion once before a few years ago.
Chronic conditions affecting care: Arrhythmia
Acute Exacerbation and/or Progression of Chronic Illness: Arrhythmia
<David Irizarry PA-C - Last Filed: 08/29/24 20:49>
*Pulse Oximetry
Patient hypoxic: no
*EKG
Interpreted by ED Provider?: Yes
Comparison EKG: changes noted
Heart Rate: 131
Rate: tachycardiac
Rhythm: a-fib
QRS Pattern: left bundle branch block
*Door [employer] Interpretation
Rate: tachycardiac
Rhythm: a-fib
*Critical Care Note
Total Time (30-74mins, 75-104mins- exclusive of procedures): Not Applicable
<David Irizarry PA-C - Last Filed: 08/29/24 20:49>
Patient Management
Discussion with other providers: Apprentice Painter Neckties
Escalation/DeEscalation of care consider admission/obs:
Patient cardioverted without complication. He remained stable following sedation and remained in a normal sinus rhythm. I did notify cardiology about patient's visit to the ER and that he has already arranged follow-up on Monday and they are in
agreement with this treatment plan. Patient is stable for discharge home.
ED Attending Note
<WHIT Mckeon - Last Filed: 08/29/24 16:29>
-
Portions of this chart may have been created with voice recognition software.� Occasional wrong word or��sound alike� substitutions may have occurred due to the inherent limitations of voice recognition software.
<Artemio Shaw MD - Last Filed: 08/29/24 23:12>
ED Attending Note
Patient seen and examined by attending physician: Yes
ED Attending Note:
I have seen and evaluated the patient with a [id number] encounter. I have spoken to the advance practicer provider and involved in the medical history, the physical exam, medical decision making.
Evaluation and management service: agree unless noted differently below.
Results interpretation: agree unless noted differently below.
Focused HPI: 78-year-old female with history as documented notable for A-fib on Eliquis presents to the emergency room for evaluation of tachycardia. Patient says that he checks his blood pressure regularly and was getting abnormal readings on
heart rate monitor�he says that his heart pulse was very high. He had an EKG that showed A-fib with RVR and was referred to the ER. He normally follows with Dr. Birch for cardiology. He is on Eliquis and compliant. No missed doses. Denies
any chest pain, shortness of breath, dizziness. Denies any other complaints.
Physical exam: Awake alert not in distress. Tachycardia with irregularly irregular rhythm. No edema in extremities.
Medical Decision Makin-year-old male presents to the emergency room in rapid A-fib. He is on Eliquis and compliant. EKG confirms A-fib with RVR. Screening labs unremarkable. Discussed treatment option with patient, opted for cardioversion
that she is a reasonable candidate given compliance with long-term anticoagulation. He was cardioverted as documented in procedure note. Discharged after observation status post sedation.
Discharge Plan
Departure
Patient Disposition: Home (Routine Discharge)
Date of Disposition: 08/29/24
Time of Disposition: 19:54
Patient with high blood pressure during this ER visit?: No
Discharge Problem:
Paroxysmal atrial fibrillation
Instructions: Atrial Fibrillation (DC), MODERATE SEDATION ADULT
Prescriptions:
No Action
metformin 500 mg Tablet
500 mg PO BID
tamsulosin 0.4 mg Capsule
0.4 mg PO HS
amlodipine 10 mg Tablet
10 mg PO DAILY
Patient Comments:
02/19/2024, per pt., was recently changed to 5 mg daily but pt. has not started taking this dose yet.
valsartan 320 mg Tablet
320 mg PO DAILY
oxybutynin chloride 5 mg Tablet
5 mg PO TID
atorvastatin 40 mg Tablet
20 mg PO HS
carvedilol 25 mg Tablet
12.5 mg PO BID
cetirizine 10 mg Tablet
10 mg PO NOON
therapeutic multivitamin Tablet
1 tab PO DAILY
melatonin 3 mg Tablet
6 mg PO HS
ferrous sulfate [iron] 325 mg (65 mg iron) Tablet
325 mg PO QPM
acetaminophen 500 mg Capsule
1,000 mg PO DAILYPRN PRN (Reason: mild pain)
mesalamine 1,000 mg Suppository
1 g LA HS
PreserVision AREDS 2,148 mcg-113 mg-45 mg-17.4mg Tablet
1 tab PO BID
Gemtesa 75 mg Tablet
75 mg PO DAILY
calcium citrate 315 mg tablet
2 tab PO BID
Eliquis 5 mg Tablet
5 mg PO BID Qty: 60 0RF
potassium chloride [Klor-Con M20] 20 mEq Tablet,Er Particles/Crystals
40 meq PO BID Qty: 0 0RF
chlorthalidone 25 mg Tablet
25 mg PO DAILY Qty: 30 0RF
silver sulfadiazine 1 % Cream
1 applic topical DAILY Qty: 50 0RF
amiodarone [Pacerone] 200 mg Tablet
200 mg PO BID Qty: 60 0RF
Rx Instructions:
200 mg twice daily for 2 weeks and then 200 mg daily
Referrals:
Jorge Alberto Thomas MD [Active] -
UNKNOWN - PT DOES,NOT KNOW [Unknown Provider] -
Interventions
Interventions:
*Risk Screen - Suicide Last Done: 08/29/24 16:15
*General Assessment Last Done: 08/29/24 17:07
*Neglect/Abuse Screening Last Done: 08/29/24 17:07
ED- Fall Risk Assessment Last Done: 08/29/24 17:07
*ED COVID-19 Vaccine History Last Done: 08/29/24 16:15
*Nursing Disposition Last Done: 08/29/24 19:55
ED- Cardiac Assessment Last Done: 08/29/24 17:07
ED- Pulmonary Assessment Last Done: 08/29/24 17:07
Discharge Date and Time
Discharge Date/Time: 08/29/24 20:14
Print Language: PANAMANIAN
[2024-08-29 16:38] LABS: % Basophils 0.9 % (0-2); % Eosinophils 2.6 % (0-6); % Immature Granulocytes 0.4 % (0-0.5); % Lymphocytes 23.3 % (20.5-51.1); % Monocytes 6.3 % (1.7-9.3); % Neutrophils 66.5 % (42.2-75.2); Absolute Basophils 0.1 10^3/uL (0-0.2); Absolute Eosinophils 0.2 10^3/uL (0-0.7); Absolute Lymphocytes 1.8 10^3/uL (1.2-3.4); Absolute Monocytes 0.5 10^3/uL (0.1-0.6); Absolute Neutrophils 5.2 10^3/uL (1.4-6.5); Hematocrit 39.1 % (39.0-52.0); Hemoglobin 13.5 g/dL (13.0-18.0); Mean Corp Hgb Conc. 34.5 g/dL (33.0-37.0); Mean Corpuscular Hgb 29.2 pg (27.0-31.0); Mean Corpuscular Volume 84.6 fL (80.0-94.0); Mean Platelet Volume 8.9 fL (7.4-10.4); Nucleated Red Blood Cells % 0 % (-); Platelet Count 184 10^3/uL (130-400); Red Blood Cell Count 4.62 10^6/uL (4.70-6.10); Red Cell Dist. Width 15.4 % (11.5-14.5); White Blood Cell Count 7.8 10^3/uL (4.8-10.8)
[2024-08-29 16:57] LABS: ALT (SGPT) 18 U/L (0-50); AST (SGOT) 24 U/L (17-59); Albumin 4.5 g/dl (3.5-5.0); Alkaline Phosphatase 77 U/L (38-126); Blood Urea Nitrogen 20 mg/dl (9-20); Calcium 10.2 mg/dl (8.4-10.2); Carbon Dioxide 29 mmol/L (22-30); Chloride 104 mmol/L (98-107); Glucose 103 mg/dl (70-99); Potassium 4.2 mmol/L (3.5-5.1); Sodium 144 mmol/L (135-145); Total Bilirubin 0.6 mg/dl (0.2-1.3); Total Protein 7.3 g/dl (6.3-8.2); eGFR > 60.00
== END 2024-08-29 20:14 | disposition home or self-care (01) ==
LOC: EMR 16:12
PROVIDERS: Nurse Practitioner; EMERGENCY PHYSICIAN Emergency Medicine; FAMILY PHYSICIAN Family Medicine
DX: I48.0 Paroxysmal atrial fibrillation (principal); Z79.01 Long term (current) use of anticoagulants
CPT/HCPCS: 99285; 92960; 99152; 80053; 85025; 93005

== ENCOUNTER → 2024-09-10 13:42 | Outpatient (REF) | payer MEDICARE, OTHER, SELFPAY | LOC: HWRCS 13:42 | PROVIDERS: ATTENDING PHYSICIAN Internal Medicine Cardiovascular Disease; FAMILY PHYSICIAN Family Medicine | DX: I34.0 Nonrheumatic mitral (valve) insufficiency (principal) | CPT/HCPCS: 93306 ==

== ENCOUNTER → 2024-11-27 10:39 | Outpatient (REF) | payer MEDICARE, OTHER, SELFPAY | LOC: HWRAD 10:39 | PROVIDERS: ATTENDING PHYSICIAN Urology; FAMILY PHYSICIAN Family Medicine | DX: D41.01 Neoplasm of uncertain behavior of right kidney (principal) | CPT/HCPCS: 76775 ==

== ENCOUNTER → 2024-12-03 14:05 | Outpatient (REF) | payer MEDICARE, OTHER, SELFPAY | LOC: PAVMRI 14:05 | PROVIDERS: ATTENDING PHYSICIAN Family Medicine | DX: R26.89 Other abnormalities of gait and mobility (principal); Z91.81 History of falling; R55 Syncope and collapse | CPT/HCPCS: 70546; 70553; A9585 ==

== ENCOUNTER → 2024-12-20 08:57 | Outpatient (REF) | payer MEDICARE, OTHER, SELFPAY | LOC: RAD 08:57 | PROVIDERS: ATTENDING PHYSICIAN Family Medicine; REFERRING PHYSICIAN Surgery Vascular Surgery | DX: I67.1 Cerebral aneurysm, nonruptured (principal) | CPT/HCPCS: 93880 ==

== ENCOUNTER → 2025-01-02 08:58 | Outpatient (REF) | payer MEDICARE, OTHER, SELFPAY | LOC: MRI 3T 08:58 | PROVIDERS: ATTENDING PHYSICIAN Surgery; FAMILY PHYSICIAN Family Medicine | DX: K63.89 Other specified diseases of intestine (principal) | CPT/HCPCS: 72197; 74183; A9575 ==

== ENCOUNTER → 2025-01-06 10:09 | Outpatient (REF) | payer MEDICARE, OTHER, SELFPAY ==
[2025-01-07 15:37] LABS: Chromogranin A 83 ng/mL (0-187)
[2025-01-08 15:55] LABS: 24 Hour Urine Total Volume 2750 mL; 5HIAA, 24 Hour Urine 6 mg/d (0-15); 5HIAA, Urine 2.2 mg/L; 5HIAA/Creatinine Ratio 5 mg/gCR (0-14); Creatinine, Urine 24 Hour 1182 mg/d (800-2100); Creatinine, Urine per Volume 43 mg/dL; Urine Collection Length 24 hr
== END ==
LOC: REG 10:09
PROVIDERS: ATTENDING PHYSICIAN Surgery; FAMILY PHYSICIAN Family Medicine; REFERRING PHYSICIAN Urology
DX: K63.89 Other specified diseases of intestine (principal)
CPT/HCPCS: 36415; 83497; 86316

== ENCOUNTER 2025-03-20 18:57 | Inpatient (IN) | payer MEDICARE, OTHER, SELFPAY ==
[2025-03-20] VITALS (7 sets, daily range): BP systolic 120–150; BP diastolic 57–70; BMI 28.7; BMI 29.2
--- NOTE | 2025-03-20 17:16 | ED.GENMED ---
History of Present Illness
General
Chief Complaint: Fever
Source: patient
Exam Limitations: none
Time Seen by Provider: 03/20/25 17:11
History of Present Illness
History of Present Illness:
See MDM
Past History
Past History
ED Past Medical History: Arrthythmia (Atrial fib), Cancer (Prostate CA with radiation), HTN, Hypercholesterolemia, NIDDM, Psychiatric (Anxiety) and Other (Neuropathy, Numbness arms and legs, Sleep apnea uses CPAP, PNA, LBBB, Diverticulitis, IBS.
Macular degeneration, Planter fasciitis right foot)
ED Past Surgical History: Orthopedic (Benjamin knee replacements, Benjamin Bunionectomy. Right elbow for bursa rupture, ), Tonsilectomy and Other (Cataracts, Mohs surgery to Nose, )
Social History
Tobacco: Non-smoker
Alcohol: None
Drug: None
Personal:
Living: with family
Phy Exam
Physical Exam
Physical Exam:
See MDM
Course
Orders/Labs/Results
Orders:
Orders
03/20/25 17:18
Complete Blood Count/With Diff Urgent
Comprehensive Metabolic Panel Urgent
Urinalysis Reflex To Culture Urgent
Date Specimen was Collected: 03/20/25
Time Specimen was Collected: 17:17
Urine Microscopic Reflex Cult Urgent
Urine Culture Urgent
ANGELICA Source: U
Specimen Description:
Date Specimen was Collected: 03/20/25
Time Specimen was Collected: 17:17
03/20/25 18:00
COVID-19 Antigen Urgent
Source: Nasal Swab
Ampicillin/Sulbactam 3 G [Unasyn] 3 gm 0.9% Sodium Chloride 100 ml [Nss] 100 ml IV NOW
Morphine Sulfate 4 mg IV NOW STA
03/20/25 18:01
Influenza A+B Rapid Molecular Urgent
ANGELICA Source: Nasal Swab
Specimen Description:
Abnormal Lab Results
03/20/25
17:18
RBC 3.71 L 10^6/uL
(4.70-6.10)
Hgb 11.3 L g/dL
(13.0-18.0)
Hct 32.7 L %
(39.0-52.0)
RDW 15.4 H %
(11.5-14.5)
Abs Immat Gran (auto) 0.1 H 10^3/uL
(0-0.05)
Absolute Neuts (auto) 6.7 H 10^3/uL
(1.4-6.5)
Absolute Lymphs (auto) 0.5 L 10^3/uL
(1.2-3.4)
Immature Gran % 0.6 H %
(0-0.5)
Neutrophils % 86.1 H %
(42.2-75.2)
Lymphocytes % 6.6 L %
(20.5-51.1)
Potassium 3.3 L mmol/L
(3.5-5.1)
Creatinine 0.6 L mg/dL
(0.7-1.3)
Glucose 122 H mg/dl
(70-99)
Total Protein 6.1 L g/dl
(6.3-8.2)
Ur Occult Blood Reflex 4+ A
(Negative)
Leukocyte Esterase Rfl 3+ A
(Negative)
Urine RBC 90-100 A /HPF
(0-2)
Urine WBC (Reflex) 21-25 A /HPF
(0-5)
Urine Bacteria (Reflex) Many A
(Negative)
Urine Albumin (Reflex) 3+ A
(Neg - Trace)
03/20/25 17:18
03/20/25 17:18
Vital Signs
Initial and Last Documented VS:
Initial Vital Signs
Temp Pulse Resp BP Pulse Ox
99.0 F 78 16 142/65 91
03/20/25 17:10 03/20/25 17:10 03/20/25 17:10 03/20/25 17:10 03/20/25 17:10
Last Documented Vital Signs
Temp Pulse Resp BP Pulse Ox
99.0 F 71 27 142/65 91
03/20/25 17:10 03/20/25 17:15 03/20/25 17:15 03/20/25 17:12 03/20/25 17:15
MDM/Problems Addressed
Differential Diagnosis Includes:
HPI and MDM Narrative:
79-year-old male presenting for evaluation of fever and abdominal discomfort. Patient had bladder stones removed in the surgical center yesterday. A Ng catheter was then placed. Patient developing fevers at home. He did take Tylenol prior to
arrival. Temperature currently 99. On exam, lungs are clear. Abdomen soft and nontender. Source of infection likely postsurgical and in the urine. Will obtain urinalysis
Physical exam
General: Well appearing and non-toxic
HEENT: protecting airway
Neck: appears supple
CV: No evidence of cyanosis
Resp: No accessory muscle use. Lungs clear
Abd: Non-distended and nontender
Extremities: No deformities
Neuro: alert
Psych: Normal affect
Skin: Warm
Problems Addressed including Acute and Chronic Conditions affecting care:
1. Fever
Acuity: acute
Prognosis: stable
Details: Given recent bladder instrumentation yesterday, this is likely the source. Will obtain urinalysis.
Updates
Source appears to be urine. At this time, at bedside states that he is too weak and falling. He is already on prophylactic Keflex. Given that he is a fall risk and failing outpatient antibiotics, will start Unasyn and admit
Differential Diagnosis (but not limited to): Viral syndrome, UTI
Testing considered: Chest x-ray but lungs clear
Drug therapy (if applicable): OTC meds, please see d/c instruction regarding Rx drugs
Amount and/or Complexity of Data Reviewed
Clinical info obtained from: Patient. states that he is falling at home
External data reviewed: N/A
Labs I independently reviewed (but not limited to): Urinalysis
Radiology: N/A
Pulse Ox: not hypoxic
EKG independently reviewed: N/A
Crib Attendant: N/A
Critical Care: N/A
Risk of Complication:
Social Determinants of health: Good social support
Discussed with other providers: Hospitalist
Escalation of Care includes Admit/Obs: Given UTI and failing outpatient antibiotics, will start Unasyn and admit
Occasional wrong word or 'sound a like' substitutions may have occurred due to the inherent limitations of voice recognition software. Read the chart carefully and recognize, using context, where substitutions have occurred.
*Critical Care Note
Total Time (30-74mins, 75-104mins- exclusive of procedures): Not Applicable
ED Attending Note
-
Portions of this chart may have been created with voice recognition software.� Occasional wrong word or��sound alike� substitutions may have occurred due to the inherent limitations of voice recognition software.
Discharge Plan
Departure
Patient Disposition: Admit
Date of Disposition: 03/20/25
Time of Disposition: 18:09
Admit to: Med/Surg
Presentation/result/management discussed w/ accepting MD/DO: Hospitalist
Discharge Problem:
Acute UTI
Prescriptions:
No Action
metformin 500 mg Tablet
500 mg PO BID
tamsulosin 0.4 mg Capsule
0.4 mg PO HS
amlodipine 10 mg Tablet
10 mg PO DAILY
Patient Comments:
02/19/2024, per pt., was recently changed to 5 mg daily but pt. has not started taking this dose yet.
valsartan 320 mg Tablet
320 mg PO DAILY
oxybutynin chloride 5 mg Tablet
5 mg PO TID
atorvastatin 40 mg Tablet
20 mg PO HS
carvedilol 25 mg Tablet
12.5 mg PO BID
cetirizine 10 mg Tablet
10 mg PO NOON
therapeutic multivitamin Tablet
1 tab PO DAILY
melatonin 3 mg Tablet
6 mg PO HS
ferrous sulfate [iron] 325 mg (65 mg iron) Tablet
325 mg PO QPM
acetaminophen 500 mg Capsule
1,000 mg PO DAILYPRN PRN (Reason: mild pain)
mesalamine 1,000 mg Suppository
1 g MO HS
PreserVision AREDS 2,148 mcg-113 mg-45 mg-17.4mg Tablet
1 tab PO BID
Gemtesa 75 mg Tablet
75 mg PO DAILY
calcium citrate 315 mg tablet
2 tab PO BID
Eliquis 5 mg Tablet
5 mg PO BID Qty: 60 0RF
potassium chloride [Klor-Con M20] 20 mEq Tablet,Er Particles/Crystals
40 meq PO BID Qty: 0 0RF
chlorthalidone 25 mg Tablet
25 mg PO DAILY Qty: 30 0RF
silver sulfadiazine 1 % Cream
1 applic topical DAILY Qty: 50 0RF
amiodarone [Pacerone] 200 mg Tablet
200 mg PO BID Qty: 60 0RF
Rx Instructions:
200 mg twice daily for 2 weeks and then 200 mg daily
Referrals:
Mily Fowler DO [Family Provider] -
Interventions
Interventions:
*Risk Screen - Suicide Last Done: 03/20/25 17:10
*General Assessment Last Done: 03/20/25 17:10
*Neglect/Abuse Screening Last Done: 03/20/25 17:10
*ED- Fall Risk Assessment Last Done: 03/20/25 17:10
*ED COVID-19 Vaccine History Last Done: 03/20/25 17:10
ED- Neurological Assessment Last Done: 03/20/25 17:22
ED-Skin Assessment Last Done: 03/20/25 17:21
Discharge Date and Time
Print Language: DOMINICAN
[2025-03-20 17:29] LABS: Urine Albumin 3+ (Neg - Trace); Urine Bilirubin Negative (Negative); Urine Character Cloudy (Clear); Urine Color Yellow; Urine Glucose Negative (Negative); Urine Ketone Negative (Negative); Urine Leukocyte 3+ (Negative); Urine Nitrite Negative (Negative); Urine Occult Blood 4+ (Negative); Urine Urobilinogen Negative (Neg - 1+)
[2025-03-20 17:30] LABS: % Basophils 0.4 % (0-2); % Eosinophils 0.1 % (0-6); % Immature Granulocytes 0.6 % (0-0.5); % Lymphocytes 6.6 % (20.5-51.1); % Monocytes 6.2 % (1.7-9.3); % Neutrophils 86.1 % (42.2-75.2); Absolute Immature Granulocytes 0.1 10^3/uL (0-0.05); Absolute Lymphocytes 0.5 10^3/uL (1.2-3.4); Absolute Monocytes 0.5 10^3/uL (0.1-0.6); Absolute Neutrophils 6.7 10^3/uL (1.4-6.5); Hematocrit 32.7 % (39.0-52.0); Hemoglobin 11.3 g/dL (13.0-18.0); Mean Corp Hgb Conc. 34.6 g/dL (33.0-37.0); Mean Corpuscular Hgb 30.5 pg (27.0-31.0); Mean Corpuscular Volume 88.1 fL (80.0-94.0); Mean Platelet Volume 9.2 fL (7.4-10.4); Nucleated Red Blood Cells % 0 % (-); Platelet Count 133 10^3/uL (130-400); Red Blood Cell Count 3.71 10^6/uL (4.70-6.10); Red Cell Dist. Width 15.4 % (11.5-14.5); White Blood Cell Count 7.8 10^3/uL (4.8-10.8)
[2025-03-20 17:45] LABS: Urine Bacteria Many (Negative); Urine Red Blood Cell 90-100 /HPF (0-2); Urine Squamous Cell 0-2 /LPF (Few); Urine White Cell 21-25 /HPF (0-5)
[2025-03-20 17:50] LABS: ALT (SGPT) 20 U/L (0-50); AST (SGOT) 27 U/L (17-59); Albumin 3.7 g/dl (3.5-5.0); Alkaline Phosphatase 58 U/L (38-126); Blood Urea Nitrogen 11 mg/dl (9-20); Calcium 8.8 mg/dl (8.4-10.2); Carbon Dioxide 29 mmol/L (22-30); Chloride 100 mmol/L (98-107); Estimated Creatinine Clearance 111 ml/min; Glucose 122 mg/dl (70-99); Potassium 3.3 mmol/L (3.5-5.1); Sodium 137 mmol/L (135-145); Total Bilirubin 0.7 mg/dl (0.2-1.3); Total Protein 6.1 g/dl (6.3-8.2); eGFR > 60.00
--- NOTE | 2025-03-20 18:14 | HPS.HSE ---
Family Physician
-
Family Physician: Mily Fowler
Chief Complaint
-
Weakness and Fever
History of Present Illness
Patient is a 79 y/o male past medical history of paroxysmal atrial fibrillation, hypertension, hyperlipidemia and recent bladder stone extraction procedure who presents with fever and weakness. Patient reports last March 14 he was started on
cephalexin for a urinary tract infection which he is still taking. Yesterday he underwent a procedure for bladder stone removal. Today he developed fever at home as high as 103F. He reports generalized weakness and his called EMS to bring
him to the emergency department.
Medical History
Past Medical History
Past Medical History: Reports Other
Additional Past Medical History:
Paroxysmal Atrial Fibrillation
Cardiomyopathy
Mild Aortic Stenosis
Essential Hypertension
Hyperlipidemia
Diabetes Mellitus, Type II
Prostate Cancer s/p Radiation
Radiation Colitis
Past Surgical History: Reports Other
Additional Past Surgical History:
Bilateral Knee Replacements
Bilateral Bunionectomy
Social History
Tobacco: Non-smoker
Alcohol: None
Drug: None
Family History
Family History: Not pertinent
Allergies / Home Medications
Allergies reflects when Allergies were last updated in [facility].
Home Medications with original date entered in [facility]
Allergy/Medication List:
Allergies
Allergy/AdvReac Type Severity Reaction Status Date / Time
No Known Allergies Allergy Verified 03/20/25 17:11
Home Medications
atorvastatin 40 mg tablet 20 mg PO HS High Cholesterol 02/19/24
calcium citrate 315 mg PO BID@1200,1800 Supplement ##0 02/19/24
cetirizine 10 mg tablet 10 mg PO HS Allergies 02/19/24
ferrous sulfate 325 mg (65 mg iron) tablet (iron) 325 mg PO DAILY Supplement 02/19/24
melatonin 3 mg tablet 6 mg PO HS Sleep 02/19/24
mesalamine 1,000 mg rectal suppository 1 g [place] HS Gastrointestinal Issue 02/19/24
metformin 500 mg tablet 500 mg PO BID Diabetes 02/19/24
oxybutynin chloride 5 mg tablet 5 mg PO TID Urinary Issue 02/19/24
tamsulosin 0.4 mg capsule 0.4 mg PO HS Urinary Issue 02/19/24
therapeutic multivitamin 1 tab PO DAILY Supplement 02/19/24
vibegron 75 mg tablet (Gemtesa) 75 mg PO DAILY Urinary Issue 02/19/24
vitamins A,C,I-xais-hejluj 2,148 mcg-113 mg-45 mg-17.4 mg tablet (PreserVision AREDS) 1 tab PO BID Supplement 02/19/24
apixaban 5 mg tablet (Eliquis) 5 mg PO BID #60 tabs 02/22/24
potassium chloride 20 mEq tablet,extended release(part/cryst) (Klor-Con M) 40 meq (2 x 20 mEq) PO BID Electrolyte Repletion #0 tabs 02/22/24
chlorthalidone 25 mg tablet 25 mg PO DAILY #30 tabs 02/23/24
acetaminophen 325 mg tablet (Tylenol) 650 mg PO Q4HPRN PRN mild pain 03/20/25
amiodarone 200 mg tablet (Pacerone) 100 mg PO DAILY 03/20/25
amlodipine 5 mg tablet (Norvasc) 5 mg PO DAILY 03/20/25
Review of Systems
-
History Source: Patient
A 12 point ROS was completed and negative except as noted: Yes
Constitutional: Reports Fever; Denies Chills
Respiratory: Denies Cough or Trouble Breathing
Cardiac: Denies Chest Pain or Palpitations
Abdomen/GI: Denies Abdominal Pain, Nausea, Vomiting, Diarrhea or Constipated
: Reports Ng and Other (Suprapubic Discomfort)
Physical Exam
Vital Signs
Vital Signs
Temp Pulse Resp BP Pulse Ox
99.0 F 71 27 142/65 91
03/20/25 17:10 03/20/25 17:15 03/20/25 17:15 03/20/25 17:12 03/20/25 17:15
Physical Exam
General: Comfortable and Conversant
HEENT: Anicteric and Moist mucous membranes
Respiratory: Clear and Non Labored Respirations
Cardiac: S1/S2 and Regular Rhythm
GI: Soft and Non Tender
Genito-urinary: Clear Urine, Ng and Other (Mild suprapubic tenderness)
Musculoskeletal: No Clubbing and No Cyanosis
Skin: Warm and Dry
Neuro: Awake, Alert and Nonfocal/grossly intact
Psych: Calm
Laboratory Results
-
03/20/25 17:18
03/20/25 17:18
Laboratory Results
Total Bilirubin 0.7 mg/dl (0.2-1.3) 03/20/25 17:18
AST 27 U/L (17-59) 03/20/25 17:18
ALT 20 U/L (0-50) 03/20/25 17:18
Alkaline Phosphatase 58 U/L (38-126) 03/20/25 17:18
Data Reviewed
-
Lab Data: Labs Reviewed by me
Impression/Plan
-
Urinary Tract Infection
-As patient has been on cephalexin for one week - Will transition to cefepime to cover possible resistant organisms
-Attempt to obtain urine culture from PCP
-Await urine culture
Generalized Weakness
-Consult PT/OT
Recent Bladder Stone Extraction
-Ng catheter placed post-op due to hematuria
-Eliquis has been on hold without recurrent of hematuria
-Per patient plan was to remove Ng tomorrow morning then restart Eliquis
-Will plan for voiding trial in AM
Paroxysmal Atrial Fibrillation
-Eliquis on hold as above - Plan to resume following successful voiding trial
-Continue amiodarone
Essential Hypertension
-Hold chlorthalidone in setting of infection
-Continue amlodipine
Hyperlipidemia
-Continue atorvastatin
Diabetes Mellitus, Type II
-Hold metformin
-Monitor sugars and continue coverage insulin
Radiation Colitis/Proctitis
-Continue mesalamine
DVT proph: SCDs until able to resume Eliquis
Code Status: Full Code
[2025-03-20] MEDS: MORPHINE SULFATE 4 MG IV (18:29)
--- NOTE | 2025-03-20 18:52 | W.PN.UPDATE ---
Update Note
Progress Note Update
Patient seen in conjunction with ELIGIBILITY EXAMINER. I agree the findings on exam physical. I concur with assessment and plan unless stated otherwise.
Briefly, this is a 79-year-old with past medical history significant for atrial fibrillation on anticoagulation, hyperlipidemia, hypertension, history of prostate cancer status post radiation, BPH, diastolic CHF who presents to the emergency
department with fevers chills and weakness after a urological procedure yesterday.
Patient was having some urinary symptoms about 1 week ago. At that time he had a UA which was positive and he was started on Keflex. He had a urology appointment for bladder stone removal. This was done 1 day ago. He had a urinary catheter in
place at that time. Immediately after the procedure there was some blood coming from the cath and patient reported that he still has some specks of blood in the morning. He stated that after the procedure he started having burning sensation
anytime he felt the urge to pee. He denied seeing riki blood in his urine today. However he said he has severe chills rigors and weakness. Is possible that the patient's felt very hot and admitted a temperature of up to 103 at home with a
digital thermometer.
Per patient apixaban was discontinued about 5 days prior to the procedure and he was supposed to restart the apixaban tomorrow. He was supposed to have catheter removal per his outpatient urology tomorrow as well.
Here in the emergency department his temp was 99, blood pressure was stable at 131/60 with a pulse of 65 and was satting 94% on room air.
CBC was unremarkable. Electrolytes BUN and creatinine were stable except for a potassium of 3.3. UA was markedly positive with WBCs RBCs leukocyte esterase and bacteria. No squames.
Assessment and plan
This is a 79-year-old who was just recently status post urinary instrumentation coming in with fevers chills rigors and a positive UA. Despite lack of peripheral leukocytosis, patient's symptoms is consistent with a complicated urinary tract
infection despite his oral outpatient Keflex.
Complicated UTI
- Admit to [facility]
- Blood cultures afebrile
-Urine culture
- Obtain UA and urine culture from patient's PMD
- Broad-spectrum antibiotic with cefepime for now
- Maintain urinary catheter for now, voiding trial in the morning as per urology plan for cath removal tomorrow
- continue tamsulosin and oxybutynin (history of bladder spasms)
- PT evaluation
AFIB -rate controlled
- Holding apixaban tonight, can restart in the a.m. after removal of catheter and patient without any ongoing hematuria
- Continue control with amio 100 daily
DM II
- hold metformin
- sliding scale insulin
HTN
- continue amlodipine
- holding chlorthalidone
- replete K
DVT PPX - SCDs pending start of apixaban tomorrow
Code Status - full code
[2025-03-20 19:03] LABS: COVID-19 Antigen Negative (Negative)
[2025-03-20] MEDS: UNASYN IV (19:23)
[2025-03-20] MEDS: MORPHINE SULFATE 2 MG IV (22:29)
[2025-03-20] MEDS: MELATONIN 6 MG PO (22:59)
[2025-03-20] MEDS: DITROPAN 5 MG PO (23:00)
[2025-03-20] MEDS: MAXIPIME 1000 MG IV (23:00)
[2025-03-20] MEDS: FLOMAX 0.4 MG PO (23:00)
[2025-03-20] MEDS: LIPITOR 20 MG PO (23:00)
[2025-03-20] MEDS: STERILE WATER FOR INJECTION 10 ML IV (23:00)
--- NOTE | 2025-03-20 23:53 | TRANSFER ---
Addendum entered by Randolph Pierce RN 03/21/25 00:22:
AAOX3, Bed alarm placed for safety.
Original Note:
Pt arrived to 3w from ED via stretcher. Unsteady upon transfer, while trying to stand and pivot Pt almost fell but supported by nursing staff. Pt oriented to room, call benitez within reach, plan of care ongoing.
[2025-03-21 00:21] LABS: Glucose - Point of Care 141 mg/dl (70-99)
[2025-03-21 04:26] VITALS: BMI 29.0
[2025-03-21] MEDS: STERILE WATER FOR INJECTION 10 ML IV ×4 (04:57→21:05)
[2025-03-21] MEDS: MAXIPIME 1000 MG IV ×4 (04:57→21:05)
[2025-03-21 05:58] LABS: Hematocrit 32.1 % (39.0-52.0); Hemoglobin 10.8 g/dL (13.0-18.0); Mean Corp Hgb Conc. 33.6 g/dL (33.0-37.0); Mean Corpuscular Hgb 29.7 pg (27.0-31.0); Mean Corpuscular Volume 88.2 fL (80.0-94.0); Mean Platelet Volume 9.4 fL (7.4-10.4); Platelet Count 131 10^3/uL (130-400); Red Blood Cell Count 3.64 10^6/uL (4.70-6.10); Red Cell Dist. Width 15.6 % (11.5-14.5); White Blood Cell Count 6.8 10^3/uL (4.8-10.8)
[2025-03-21] MEDS: TYLENOL 650 MG PO (05:58)
[2025-03-21 06:00] VITALS: BMI 29.2
[2025-03-21 06:23] LABS: Blood Urea Nitrogen 11 mg/dl (9-20); Calcium 8.7 mg/dl (8.4-10.2); Carbon Dioxide 31 mmol/L (22-30); Chloride 100 mmol/L (98-107); Estimated Creatinine Clearance 95 ml/min; Glucose 120 mg/dl (70-99); Sodium 139 mmol/L (135-145); eGFR > 60.00
[2025-03-21 07:16] LABS: Glucose - Point of Care 146 mg/dl (70-99)
[2025-03-21 08:05] VITALS: BP 135/58
[2025-03-21] MEDS: NOVOLOG FLEXPEN-LOW RESISTANCE SC ×3 (08:23→17:09)
[2025-03-21] MEDS: PACERONE 100 MG PO (08:24)
[2025-03-21] MEDS: DITROPAN 5 MG PO ×3 (08:24→21:04)
[2025-03-21] MEDS: NORVASC 5 MG PO (08:25)
[2025-03-21] MEDS: KCL 270 MEQ IV (08:41)
[2025-03-21 11:52] LABS: Glucose - Point of Care 121 mg/dl (70-99)
--- NOTE | 2025-03-21 12:06 | W.PN.HOSP.TC ---
Today's Communication/Plan
-
Await urine culture results
Restart home meds
Restart Eliquis
PT OT eval
Follow-up with the culture data from admission
Continue with IV antibiotic
Assessment / Plan
Assessment / Plan
Fevers at home
Suspected ongoing urinary Tract Infection
-As patient has been on cephalexin for one week - Will transition to cefepime to cover possible resistant organisms
-Attempt to obtain urine culture from PCP. requested and pending
-Await urine culture
Generalized Weakness
-Consult PT/OT
Recent Bladder Stone Extraction
-Ng catheter placed post-op due to hematuria
-Eliquis has been on hold without recurrent of hematuria
-Per patient plan was to remove Ng tomorrow morning then restart Eliquis
- S/p voiding trial and voiding without difficulty. Restart Eliquis.
Paroxysmal Atrial Fibrillation
- Restart Eliquis.
-Continue amiodarone
Essential Hypertension
-Hold chlorthalidone in setting of infection
-Continue amlodipine
Hyperlipidemia
-Continue atorvastatin
Diabetes Mellitus, Type II
-Hold metformin
-Monitor sugars and continue coverage insulin
Radiation Colitis/Proctitis
-Continue mesalamine
DVT proph: Eliquis
Code Status: Full Code
Discussed with spouse at bedside in detail
Anticipated Discharge: > 48 hours
Subjective/Interval History
-
Date of Service: March 21, 2025
States of fevers at home after undergoing urological procedure
Ng catheter removed and patient voided x 2
Urine was clear without blood
Objective Data
-
Labs:
Laboratory Results
03/21/25
05:17
WBC 6.8
Hgb 10.8 L
Hct 32.1 L
Plt Count 131
Sodium 139
Potassium 3.0 L
Chloride 100
Carbon Dioxide 31 H
BUN 11
Creatinine 0.7
Glucose 120 H
Calcium 8.7
Vital Signs:
Vital Signs
Temp Pulse Resp BP Pulse Ox
97.5 F 66 14 135/58 93
03/21/25 08:05 03/21/25 08:05 03/21/25 08:05 03/21/25 08:05 03/21/25 08:05
I&O
03/20/25 03/21/25 03/22/25
06:59 06:59 06:59
Output Total 1100 / 1100
Balance -1100 / -1100
Physical Exam
-
General: Well Developed and No Apparent Distress
HEENT: Normocephalic, Atraumatic and Moist Mucous Membranes
Respiratory: Clear to Auscultation
Cardiac: Regular Rhythm and S1/S2; Negative Murmur, Rub or Gallop
GI: Soft, Nontender, Nondistended and Normal Bowel Sounds; Negative Organomegaly
Rectal: Deferred by Provider
Genito-urinary: Other (Urine light yellow color in the urinal noted)
Musculoskeletal: No Clubbing, No Cyanosis and No Edema
Skin: Negative Rash
Neuro: Awake, AO x 3, No Motor Deficits and Nonfocal/Grossly Intact
Psych: Calm
Data Reviewed
-
Total Time Spent with Patient (in minutes): 55
[2025-03-21 12:59] LABS: Glycohemoglobin (HgbA1c) 6.1 % (4.0-5.6)
[2025-03-21 14:45] VITALS: BP 133/63; PULSE 62
[2025-03-21 15:18] VITALS: BP 133/63; PULSE 60; O2SAT 93
--- NOTE | 2025-03-21 15:42 | VNURNOTE ---
Home Health Liaison spoke with patient to discuss [facility] nurse/therapy, visits, schedule and homebound status. Patient is familiar with VN services and agreeable. He understands that visits at home will be 2-3 x per week to assess and teach medical
management. Patient is aware that [facility] will contact them for start of care in 1-2 days after discharge from .
[facility] referral completed in [facility].
[2025-03-21 15:58] VITALS: BP 133/62
[2025-03-21 17:02] LABS: Glucose - Point of Care 123 mg/dl (70-99)
--- NOTE | 2025-03-21 17:16 | CM ---
Alert awake oriented patient who lives with his Carito in a condo with elevator. He is independent in driving and in all activities of daily living.He was offered VN he requested [facility] Liaison Carito notified.[facility].
Pt [facility] hx / No SNF history
Pharmacy [facility]
PCP DR Fowler
PLAN Home with VN
[2025-03-21] MEDS: OSCAL CAL 500 250 MG PO (17:32)
[2025-03-21] MEDS: KCL 40 MEQ PO (21:04)
[2025-03-21] MEDS: ELIQUIS 5 MG PO (21:04)
[2025-03-21] MEDS: FLOMAX 0.4 MG PO (21:05)
[2025-03-21] MEDS: MELATONIN 6 MG PO (21:05)
[2025-03-21] MEDS: LIPITOR 20 MG PO (21:05)
[2025-03-21] MEDS: ZYRTEC 10 MG PO (21:06)
[2025-03-21 22:50] LABS: Glucose - Point of Care 151 mg/dl (70-99)
[2025-03-22 01:27] VITALS: BP 141/50
[2025-03-22] MEDS: STERILE WATER FOR INJECTION 10 ML IV ×3 (04:03→19:17)
[2025-03-22] MEDS: MAXIPIME 1000 MG IV ×2 (04:04→09:33)
[2025-03-22 08:19] LABS: Glucose - Point of Care 143 mg/dl (70-99)
[2025-03-22 08:28] VITALS: BP 159/64
[2025-03-22] MEDS: FEOSOL 325 MG PO (09:31)
[2025-03-22] MEDS: OCUVITE SOFTGEL 1 CAP PO (09:31)
[2025-03-22] MEDS: NOVOLOG FLEXPEN-LOW RESISTANCE SC (09:31)
[2025-03-22] MEDS: PACERONE 100 MG PO (09:32)
[2025-03-22] MEDS: DITROPAN 5 MG PO ×3 (09:32→21:36)
[2025-03-22] MEDS: TYLENOL 650 MG PO (09:32)
[2025-03-22] MEDS: ELIQUIS 5 MG PO ×2 (09:32→21:35)
[2025-03-22] MEDS: NORVASC 5 MG PO (09:32)
[2025-03-22] MEDS: KCL 40 MEQ PO ×2 (09:32→21:35)
[2025-03-22 10:55] LABS: % Basophils 0.2 % (0-2); % Immature Granulocytes 0.3 % (0-0.5); % Lymphocytes 5.4 % (20.5-51.1); % Monocytes 5.5 % (1.7-9.3); % Neutrophils 88.6 % (42.2-75.2); Absolute Lymphocytes 0.6 10^3/uL (1.2-3.4); Absolute Monocytes 0.6 10^3/uL (0.1-0.6); Hematocrit 33.3 % (39.0-52.0); Hemoglobin 11.4 g/dL (13.0-18.0); Mean Corp Hgb Conc. 34.2 g/dL (33.0-37.0); Mean Corpuscular Hgb 29.8 pg (27.0-31.0); Mean Corpuscular Volume 87.2 fL (80.0-94.0); Mean Platelet Volume 9.2 fL (7.4-10.4); Nucleated Red Blood Cells % 0 % (-); Platelet Count 139 10^3/uL (130-400); Red Blood Cell Count 3.82 10^6/uL (4.70-6.10); Red Cell Dist. Width 15.6 % (11.5-14.5); White Blood Cell Count 11.3 10^3/uL (4.8-10.8)
[2025-03-22 11:06] LABS: Blood Urea Nitrogen 11 mg/dl (9-20); Calcium 8.8 mg/dl (8.4-10.2); Carbon Dioxide 32 mmol/L (22-30); Chloride 102 mmol/L (98-107); Estimated Creatinine Clearance 111 ml/min; Glucose 160 mg/dl (70-99); Potassium 3.4 mmol/L (3.5-5.1); Sodium 138 mmol/L (135-145); eGFR > 60.00
[2025-03-22 12:26] LABS: Glucose - Point of Care 198 mg/dl (70-99)
--- NOTE | 2025-03-22 12:31 | W.PN.HOSP.TC ---
Today's Communication/Plan
-
Continue with cefepime
Await outpatient records
Assessment / Plan
Assessment / Plan
Fevers at home
Suspected ongoing urinary Tract Infection
-As patient has been on cephalexin for one week - Will transition to cefepime to cover possible resistant organisms
-Attempt to obtain urine culture from PCP. requested and pending. Spouse also called and awaiting for results to be faxed over.
-Await urine culture negative for growth here
Generalized Weakness
-Consult PT/OT
Recent Bladder Stone Extraction
-Ng catheter placed post-op due to hematuria
-Eliquis has been on hold without recurrent of hematuria
-Per patient plan was to remove Ng tomorrow morning then restart Eliquis
- S/p voiding trial and voiding without difficulty. Restart Eliquis.
Paroxysmal Atrial Fibrillation
- Restart Eliquis.
-Continue amiodarone
Essential Hypertension
-Hold chlorthalidone in setting of infection
-Continue amlodipine
Hyperlipidemia
-Continue atorvastatin
Diabetes Mellitus, Type II
-Hold metformin. A1C 6.1
-Monitor sugars and continue coverage insulin
Radiation Colitis/Proctitis
-Continue mesalamine
Chronic hypokalemia
- Continue with p.o. supplementation
DVT proph: Eliquis
Code Status: Full Code
Discussed with spouse at bedside in detail
Anticipated Discharge: Within 24 hours
Subjective/Interval History
-
Date of Service: March 22, 2025
States of some dysuria
remains afebrile
Objective Data
-
Labs:
Laboratory Results
03/22/25
10:28
WBC 11.3 H
Hgb 11.4 L
Hct 33.3 L
Plt Count 139
Sodium 138
Potassium 3.4 L
Chloride 102
Carbon Dioxide 32 H
BUN 11
Creatinine 0.6 L
Glucose 160 H
Calcium 8.8
Vital Signs:
Vital Signs
Temp Pulse Resp BP Pulse Ox
99.4 F 76 21 159/64 90
03/22/25 08:28 03/22/25 08:28 03/22/25 08:28 03/22/25 08:28 03/22/25 08:28
I&O
03/21/25 03/22/25 03/23/25
06:59 06:59 06:59
Intake Total 720 / 720
Output Total 1100 / 1100 450 / 450
Balance -1100 / -1100 270 / 270
Physical Exam
-
General: Well Developed and No Apparent Distress
HEENT: Normocephalic, Atraumatic and Moist Mucous Membranes
Respiratory: Clear to Auscultation
Cardiac: Regular Rhythm and S1/S2; Negative Murmur, Rub or Gallop
GI: Soft, Nontender, Nondistended and Normal Bowel Sounds; Negative Organomegaly
Rectal: Deferred by Provider
Genito-urinary: Other (Urine light yellow color in the urinal noted)
Musculoskeletal: No Clubbing, No Cyanosis and No Edema
Skin: Negative Rash
Neuro: Awake, AO x 3, No Motor Deficits and Nonfocal/Grossly Intact
Psych: Calm
[2025-03-22] MEDS: NOVOLOG FLEXPEN-LOW RESISTANCE 300 UNITS SC (13:52)
[2025-03-22] MEDS: OSCAL CAL 500 250 MG PO ×2 (13:53→19:17)
[2025-03-22 15:50] VITALS: BP 120/59
[2025-03-22 16:30] LABS: Glucose - Point of Care 215 mg/dl (70-99)
[2025-03-22] MEDS: NOVOLOG FLEXPEN-LOW RESISTANCE 3 UNITS SC (16:34)
[2025-03-22] MEDS: MAXIPIME 2000 MG IV (19:17)
[2025-03-22] MEDS: MELATONIN 6 MG PO (21:36)
[2025-03-22] MEDS: LIPITOR 20 MG PO (21:36)
[2025-03-22] MEDS: ZYRTEC 10 MG PO (21:36)
[2025-03-22] MEDS: FLOMAX 0.4 MG PO (21:36)
[2025-03-22 22:08] LABS: Glucose - Point of Care 143 mg/dl (70-99)
[2025-03-22 23:00] VITALS: BP 125/52
[2025-03-23 06:00] VITALS: BMI 27.8
[2025-03-23] MEDS: STERILE WATER FOR INJECTION 10 ML IV ×2 (06:35→16:05)
[2025-03-23] MEDS: MAXIPIME 2000 MG IV ×2 (06:35→16:05)
[2025-03-23 07:51] LABS: Glucose - Point of Care 119 mg/dl (70-99)
[2025-03-23 08:14] VITALS: BP 147/87
[2025-03-23 08:50] LABS: % Basophils 0.2 % (0-2); % Eosinophils 0.6 % (0-6); % Immature Granulocytes 0.3 % (0-0.5); % Monocytes 7.2 % (1.7-9.3); % Neutrophils 80.7 % (42.2-75.2); Absolute Eosinophils 0.1 10^3/uL (0-0.7); Absolute Monocytes 0.6 10^3/uL (0.1-0.6); Absolute Neutrophils 6.9 10^3/uL (1.4-6.5); Hematocrit 30.4 % (39.0-52.0); Hemoglobin 10.6 g/dL (13.0-18.0); Mean Corp Hgb Conc. 34.9 g/dL (33.0-37.0); Mean Corpuscular Hgb 30.5 pg (27.0-31.0); Mean Corpuscular Volume 87.4 fL (80.0-94.0); Mean Platelet Volume 9.5 fL (7.4-10.4); Nucleated Red Blood Cells % 0 % (-); Platelet Count 137 10^3/uL (130-400); Red Blood Cell Count 3.48 10^6/uL (4.70-6.10); Red Cell Dist. Width 15.5 % (11.5-14.5); White Blood Cell Count 8.6 10^3/uL (4.8-10.8)
[2025-03-23 08:55] LABS: Blood Urea Nitrogen 11 mg/dl (9-20); Calcium 8.4 mg/dl (8.4-10.2); Carbon Dioxide 28 mmol/L (22-30); Chloride 103 mmol/L (98-107); Estimated Creatinine Clearance 111 ml/min; Glucose 118 mg/dl (70-99); Potassium 3.6 mmol/L (3.5-5.1); Sodium 138 mmol/L (135-145); eGFR > 60.00
[2025-03-23] MEDS: NOVOLOG FLEXPEN-LOW RESISTANCE SC ×2 (09:34→13:36)
[2025-03-23] MEDS: PACERONE 100 MG PO (09:34)
[2025-03-23] MEDS: OSCAL CAL 500 250 MG PO (09:34)
[2025-03-23] MEDS: OCUVITE SOFTGEL 1 CAP PO (09:34)
[2025-03-23] MEDS: TYLENOL 650 MG PO (09:35)
[2025-03-23] MEDS: ELIQUIS 5 MG PO (09:35)
[2025-03-23] MEDS: KCL 40 MEQ PO (09:35)
[2025-03-23] MEDS: FEOSOL 325 MG PO (09:35)
[2025-03-23] MEDS: NORVASC 5 MG PO (09:35)
[2025-03-23] MEDS: DITROPAN 5 MG PO ×2 (09:41→16:05)
[2025-03-23 11:54] LABS: Glucose - Point of Care 146 mg/dl (70-99)
--- NOTE | 2025-03-23 12:04 | W.PN.HOSP.TC ---
Today's Communication/Plan
-
dc today
op pcp f/u
Assessment / Plan
Assessment / Plan
Fevers at home after anesthesia and urological procedures
Supposedly urinary tract infection as outpatient getting treatment
-Received cephalexin as outpatient. No history of MDRO's over here.
- Never received urine culture data. Only urine analysis report was received.
- Urine culture negative over here. Patient cleared the infection. Patient has remained afebrile throughout hospitalization. White count is normal. Patient has received total of 10 days of antibiotics so far. Patient can follow-up follow-up
with primary doctor early next week. Patient is eager to get discharged home and patient and spouse agreed for discharge planning later today after IV antibiotic dose. Patient and spouse understand to return to ER if with any episode of fever.
Generalized Weakness
-Consult PT/OT
Recent Bladder Stone Extraction
-Ng catheter placed post-op due to hematuria
-S/p voiding trial and voiding without difficulty. Restarted Eliquis.and clear yellow urine noted
Paroxysmal Atrial Fibrillation
- Restart Eliquis.
-Continue amiodarone
Essential Hypertension
-Cont home regimen
-Continue amlodipine
Hyperlipidemia
-Continue atorvastatin
Diabetes Mellitus, Type II
-Hold metformin. A1C 6.1
-Monitor sugars and continue coverage insulin
Radiation Colitis/Proctitis
-Continue mesalamine
Chronic hypokalemia
- Continue with p.o. supplementation
DVT proph: Eliquis
Code Status: Full Code
Discussed with spouse at bedside in detail in details and agreed with discharge planning home today
PT/OT Home health
More than 30 minutes spent in discharge including
Final examination of the patient
Summarizing hospital stay
Instructions for continuing care to all relevant caregivers
Preparation of discharge records, prescriptions, and referral forms
Total time spent (in minutes): 52
Anticipated Discharge: Today
Subjective/Interval History
-
Date of Service: March 23, 2025
Patient continues to remain afebrile since admission
Passing urine without any difficulty
Denies any dysuria
Denies any blood in the urine
States has not slept much in the hospital
Objective Data
-
Labs:
Laboratory Results
03/23/25
08:28
WBC 8.6
Hgb 10.6 L
Hct 30.4 L
Plt Count 137
Sodium 138
Potassium 3.6
Chloride 103
Carbon Dioxide 28
BUN 11
Creatinine 0.5 L
Glucose 118 H
Calcium 8.4
Vital Signs:
Vital Signs
Temp Pulse Resp BP Pulse Ox
99.1 F 71 20 147/87 90
03/23/25 08:14 03/23/25 08:14 03/23/25 08:14 03/23/25 08:14 03/23/25 08:14
I&O
03/22/25 03/23/25 03/24/25
06:59 06:59 06:59
Intake Total 720 / 720 1500 / 1500
Output Total 450 / 450
Balance 270 / 270 1500 / 1500
Physical Exam
-
General: Well Developed and No Apparent Distress
HEENT: Normocephalic, Atraumatic and Moist Mucous Membranes
Respiratory: Clear to Auscultation
Cardiac: Regular Rhythm and S1/S2; Negative Murmur, Rub or Gallop
GI: Soft, Nontender, Nondistended and Normal Bowel Sounds; Negative Organomegaly
Rectal: Deferred by Provider
Musculoskeletal: No Clubbing, No Cyanosis and No Edema
Skin: Negative Rash
Neuro: Awake, AO x 3, No Motor Deficits and Nonfocal/Grossly Intact
Psych: Calm
[2025-03-23 12:33] VITALS: BP 137/70; PULSE 65
--- NOTE | 2025-03-23 13:09 | W.DCSUMMARY ---
Discharge Summary
Discharge Data
Date of Admission: 03/20/25
Date of Discharge: 03/23/25
-
Pending Results: No
Hospital Course
79-year-old male past medical history of atrial fibrillation, chronic coagulopathy with Eliquis, hypertension, diabetes mellitus, hyperlipidemia, radiation blindness, proctitis, chronic hypokalemia, was presenting home with weakness and fevers.
Patient had outpatient bladder stone extraction earlier in the week. Patient had a Ng catheter on admission which was removed. Patient without any hematuria patient was restarted on Eliquis. Patient was maintained on IV antibiotics. Patient
urine culture in the hospital was negative. Patient remained afebrile throughout hospitalization. White count was completely normal. Received only urine analysis from PCP office. Urine culture negative over here. Patient cleared the infection.
Patient has remained afebrile throughout hospitalization. White count is normal. Patient has received total of 10 days of antibiotics so far. Patient can follow-up follow-up with primary doctor early next week. Patient is eager to get discharged
home and patient and spouse agreed for discharge planning later today after IV antibiotic dose. Patient and spouse understand to return to ER if with any episode of fever.
Discharge Plan
-
Patient Disposition: Home (Routine Discharge)
Discharge Diagnosis/Procedures: Fevers at home
weakness
Condition: Fair
Diet: Diabetic, Carb Controlled
Activity: As tolerated
Driving Restrictions: As prior to admission
Referrals:
Mily Fowler DO [Family Provider] - in less than 1 week
Prescriptions:
Continued
metformin 500 mg Tablet
500 mg PO BID
tamsulosin 0.4 mg Capsule
0.4 mg PO HS
oxybutynin chloride 5 mg Tablet
5 mg PO TID
atorvastatin 40 mg Tablet
20 mg PO HS
cetirizine 10 mg Tablet
10 mg PO HS
therapeutic multivitamin Tablet
1 tab PO DAILY
melatonin 3 mg Tablet
6 mg PO HS
ferrous sulfate [iron] 325 mg (65 mg iron) Tablet
325 mg PO DAILY
mesalamine 1,000 mg Suppository
1 g [place] HS
calcium citrate 250 mg calcium Tablet
315 mg PO BID@1200,1800 Qty: 0
PreserVision AREDS 2,148 mcg-113 mg-45 mg-17.4mg Tablet
1 tab PO BID
Gemtesa 75 mg Tablet
75 mg PO DAILY
Eliquis 5 mg Tablet
5 mg PO BID Qty: 60 0RF
Rx Instructions:
on hold for surgery on 03/21/25
potassium chloride [Klor-Con M20] 20 mEq Tablet,Er Particles/Crystals
40 meq PO BID Qty: 0 0RF
chlorthalidone 25 mg Tablet
25 mg PO DAILY Qty: 30 0RF
amlodipine [Norvasc] 5 mg Tablet
5 mg PO DAILY
amiodarone [Pacerone] 200 mg tablet
100 mg PO DAILY
acetaminophen [Tylenol] 325 mg Tablet
650 mg PO Q4HPRN PRN (Reason: mild pain)
cephalexin 500 mg Capsule
500 mg PO TID
Discharge Orders:
Discharge Patient (As Directed); Ordered 03/23/25
Ordered By: Mohan Javier
Discharge Date and Time
Print Language: SLOVAK
--- NOTE | 2025-03-23 14:21 | CM ---
Pt for dc today. Met with and pt at bedside.
Pt will dc to home with [facility]. will transport home.
[2025-03-23 15:54] VITALS: BP 129/65
== END 2025-03-23 17:24 | disposition home health service (06) | DRG 699 ==
LOC: 3 WEST ACU 18:57
PROVIDERS: Physician Assistant Medical; ADMITTING PHYSICIAN Internal Medicine; ATTENDING PHYSICIAN Hospitalist; EMERGENCY PHYSICIAN Student in an Organized Health Care Education/Training Program; FAMILY PHYSICIAN Family Medicine
DX: N99.89 Other postprocedural complications and disorders of genitourinary system (principal); N39.0 Urinary tract infection, site not specified; Y83.8 Other surgical procedures as the cause of abnormal reaction of the patient, or of later complication, without mention of misadventure at the time of the procedure; E11.40 Type 2 diabetes mellitus with diabetic neuropathy, unspecified; I48.0 Paroxysmal atrial fibrillation; I10 Essential (primary) hypertension; E78.00 Pure hypercholesterolemia, unspecified; E87.6 Hypokalemia; Z79.84 Long term (current) use of oral hypoglycemic drugs; Z92.3 Personal history of irradiation
CPT/HCPCS: 80048; 80053; 81003; 81015; 82962; 83036; 85025; 85027; 87086; 87502; 87811; 96374; 97116; 97163; 97166; 97530; 99285

== ENCOUNTER → 2025-07-23 07:19 | Outpatient (REF) | payer MEDICARE, OTHER, SELFPAY ==
[2025-07-23 10:01] LABS: ALT (SGPT) 16 U/L (0-50); AST (SGOT) 23 U/L (17-59); Albumin 4.0 g/dl (3.5-5.0); Alkaline Phosphatase 64 U/L (38-126); Blood Urea Nitrogen 12 mg/dl (9-20); Calcium 9.8 mg/dl (8.4-10.2); Carbon Dioxide 33 mmol/L (22-30); Chloride 103 mmol/L (98-107); Glucose 100 mg/dl (70-99); HDL Cholesterol 55 mg/dl; LDL Cholesterol, Calculated 69 mg/dl; Potassium 3.6 mmol/L (3.5-5.1); Sodium 141 mmol/L (135-145); Total Protein 6.5 g/dl (6.3-8.2); Very Low Density Lipoprotein 13 mg/dl (0-30); eGFR > 60.00
== END ==
LOC: HWLAB 07:19
PROVIDERS: ATTENDING PHYSICIAN Internal Medicine Cardiovascular Disease; FAMILY PHYSICIAN Family Medicine; REFERRING PHYSICIAN Surgery
DX: K63.89 Other specified diseases of intestine (principal); E78.5 Hyperlipidemia, unspecified
CPT/HCPCS: 36415; 80053; 80061; 81050; 83497; 84443; 86316

== ENCOUNTER → 2025-08-20 12:09 | Outpatient (REF) | payer MEDICARE, OTHER, SELFPAY | LOC: MRI 3T 12:09 | PROVIDERS: ATTENDING PHYSICIAN Surgery; FAMILY PHYSICIAN Family Medicine | DX: K63.89 Other specified diseases of intestine (principal) | CPT/HCPCS: 72197; 74183; A9575 ==

== ENCOUNTER 2025-09-08 06:19 | Day surgery (SDC) | payer MEDICARE, OTHER, SELFPAY ==
[2025-09-08] VITALS (11 sets, daily range): BP systolic 125–164; BP diastolic 58–79; BMI 28.2
[2025-09-08 12:43] LABS: Glucose - Point of Care 101 mg/dl (70-99)
[2025-09-08] MEDS: NORMOSOL-R/PLASMALYTE-A 1000 IV (12:45)
[2025-09-08] MEDS: TYLENOL 1000 MG PO (12:55)
--- NOTE | 2025-09-08 13:14 | W.SUR.PREOP ---
Pre-Operative Surgical Note
-
I have examined this patient prior to the performance of the scheduled procedure.
The patient's condition is unchanged from the time of the current History and
Physical and the patient is able to undergo the scheduled procedure.
--- NOTE | 2025-09-08 15:20 | W.IMMPOSTOP ---
Addendum entered and electronically signed by Quang Marcial MD 09/08/25 16:04:
[id number]
Original Note:
Surgical Immed Post Op Note
-
Primary Surgeon: Quang Marcial MD
Assisting Surgeon: Arelis Tan NP
Pre-op Diagnosis: Mesenteric Mass
Post-op Diagnosis: Mesenteric Mass
Procedure Performed: Diagnostic Laparoscopic; Laparoscopic incisional biopsy mesenteric mass
Anesthesia Type: GETA +0.25% Marcaine with epi
Specimen / Cultures: Peritoneal fluid for cytology; mesenteric mass incisional biopsy
Estimated Blood Loss: 4 mL
Complications: None immediate
Operative Findings: Large infiltrating mass at the root of the small bowel mesentery. Minimal adjacent free fluid suction and will be sent for routine cytology. Attempted Shashi-Cut core needle biopsy however calcification and firmness of mass
prohibited passing needle. Subsequent laparoscopic incisional biopsy utilizing cautery as well as harmonic to obtain approximately postage stamp size tissue for pathology. No bowel adhesions. Small bowel run in its entirety and otherwise
unremarkable.
The assistance of Taylor Tan NP was required due to the complexity of the procedure. During the procedure Taylor Tan NP assisted with trocar placement, laparoscopic tissue retraction, managing the laparoscope for visualization and
assistance with closure of the surgical incision sites. I was present for the entirety of the operative procedure.
[2025-09-08 15:28] LABS: Glucose - Point of Care 152 mg/dl (70-99)
[2025-09-08] MEDS: DILAUDID 0.25 MG IV ×3 (15:45→16:18)
[2025-09-08] MEDS: ZOFRAN 4 MG IV (17:20)
== END 2025-09-08 18:32 | disposition home or self-care (01) ==
LOC: SDS 06:19
PROVIDERS: ATTENDING PHYSICIAN Surgery
DX: K63.89 Other specified diseases of intestine (principal); D48.7 Neoplasm of uncertain behavior of other specified sites
CPT/HCPCS: 49321; 82962; 88112; 88305; 88341; 88342

== ENCOUNTER → 2025-09-29 06:46 | Outpatient (REF) | payer MEDICARE, OTHER, SELFPAY ==
[2025-09-29 12:12] LABS: Folate > 20.0 ng/ml (2.76-20); Vitamin B12 497 pg/ml (239-931)
[2025-09-30 11:30] LABS: CRP, Ultra Sensitive 3.67 mg/L (0.30-5.00)
[2025-10-01 06:03] LABS: Copper, Serum 111.2 ug/dL (70.0-140.0)
[2025-10-01 08:25] LABS: SSA 52 (Ro)(ENA) Ab, IgG 1 AU/mL (0-40); SSA 60 (Ro)(ENA) Ab, IgG 0 AU/mL (0-40); SSB (La)(ENA) Ab, IgG 0 AU/mL (0-40)
[2025-10-02 07:24] LABS: Vitamin B1, Whole Blood 186 nmol/L (70-180)
== END ==
LOC: HWLAB 06:46
PROVIDERS: ATTENDING PHYSICIAN Psychiatry & Neurology Neurology; FAMILY PHYSICIAN Family Medicine
DX: I67.1 Cerebral aneurysm, nonruptured (principal); R26.89 Other abnormalities of gait and mobility; R41.3 Other amnesia; E08.41 Diabetes mellitus due to underlying condition with diabetic mononeuropathy
CPT/HCPCS: 36415; 82525; 82607; 82746; 84155; 84165; 84425; 84443; 84446; 85652; 86141; 86235; 86618

== ENCOUNTER → 2025-10-11 06:35 | Outpatient (REF) | payer MEDICARE, OTHER, SELFPAY ==
[2025-10-11 09:51] LABS: Vitamin D, 25-OH*** 24.7 ng/mL (30-80)
== END ==
LOC: MRI 06:35
PROVIDERS: ATTENDING PHYSICIAN Psychiatry & Neurology Neurology; FAMILY PHYSICIAN Family Medicine
DX: I67.1 Cerebral aneurysm, nonruptured (principal); R26.89 Other abnormalities of gait and mobility; R41.3 Other amnesia; E08.41 Diabetes mellitus due to underlying condition with diabetic mononeuropathy; G25.79 Other drug induced movement disorders; E55.9 Vitamin D deficiency, unspecified; Z79.899 Other long term (current) drug therapy
CPT/HCPCS: 36415; 70544; 82306; 82652; 84207

== ENCOUNTER → 2025-10-14 08:05 | Outpatient (REF) | payer MEDICARE, OTHER, SELFPAY | LOC: HWRCS 08:05 | PROVIDERS: ATTENDING PHYSICIAN Internal Medicine Cardiovascular Disease; FAMILY PHYSICIAN Family Medicine | DX: Q25.3 Supravalvular aortic stenosis (principal) | CPT/HCPCS: 93306 ==